=== PATIENT | male | born 1955 | race Caucasian/White ===

== ENCOUNTER 2017-03-28 11:36 | Inpatient (IN) | payer MEDICAID ==
[~2017-03-28] VITALS: Ht 175.3 cm; Wt 61.4 kg
--- NOTE | ~2017-03-28 | ER ---
PATIENT'S NAME: JIMMIE TORO [facility] AGE: 61 Y [address] ROOM: [place] [address] LOCATION: [facility] ADMIT DATE: 03/28/2017 ER/Outpatient Report DISCHARGE DATE: FAMILY PHYSICIAN: PHYSICIAN, NO ATTENDING PHYSICIAN: Miryam PAGAN Time of Arrival: 1136 hours. Time of Evaluation: 1136 hours. CHIEF COMPLAINT: Coughing up blood. HISTORY OF PRESENT ILLNESS: The patient is a 61-year-old male who presents to the emergency department today with a chief complaint of coughing up blood. He reports that he just moved from [place] about 3 days prior to arrival here in the emergency department. The patient reports he has oropharyngeal cancer. He has undergone chemotherapy with cisplatin, Taxotere, 5-fluorouracil, and Neulasta. He does report that he started coughing up blood last night. He has required suctioning. The patient does have a trach and he has also a PEG noted. Denies any nausea or vomiting. No shortness of breath. Does report a fever from 100 to 101. He does have some abdominal pain at the feeding tube. Denies any chest pain. PAST MEDICAL HISTORY: Type 2 diabetes, oropharyngeal cancer, abdominal trauma. PAST SURGICAL HISTORY: Tracheostomy x2, laparotomy for abdominal trauma, benign laryngeal lesion removed 6 years ago in [place]. SOCIAL HISTORY: The patient was living with friends in [place], [place], just moved back to be with his sister 3 days ago. He does have a heavy smoking history, at least half a pack a day for more than 40 years, quit approximately 5 months ago. ALLERGIES: NO KNOWN DRUG ALLERGIES. MEDICATIONS: Please see list. PRIMARY CARE DOCTOR: No local provider. He used to see Dr. Breanne Holcomb in [place] and has been seeing the [facility]. PATIENT'S NAME: JIMMIE TORO [facility] AGE: 61 Y [address] ROOM: [place] [address] LOCATION: [facility] ADMIT DATE: 03/28/2017 ER/Outpatient Report DISCHARGE DATE: FAMILY PHYSICIAN: PHYSICIAN, NO ATTENDING PHYSICIAN: Miryam PAGAN REVIEW OF SYSTEMS: All systems are reviewed by myself and are negative with the exception of those discussed in HPI and past medical history. PHYSICAL EXAMINATION: VITAL SIGNS: Weight 66.2 kg. Blood pressure 93/59, pulse 64, respiratory rate 18, temperature 98.4, oxygen saturation 94% on room air. GENERAL: The patient is a 61-year-old male, appears stated age, in no acute distress at this time. HEENT: Head: Normocephalic, atraumatic. Pupils are equal, round, and reactive to light and accommodation. Extraocular motions are intact. Nares are patent bilaterally. TMs are clear. Oropharynx is clear. NECK: Trach is in place. No drainage noted. No nuchal rigidity. CARDIOVASCULAR: Regular rate and rhythm. LUNGS: Diminished diffusely. ABDOMEN: Soft, [id number] tenderness to palpation. No rebound, rigidity, or guarding. Positive bowel sounds. MUSCULOSKELETAL: The patient moves all 4 extremities. SKIN: Warm and dry. There is no rashes or lesions noted. LABORATORY DATA AND X-RAYS: Lactate is 2.0. CBC is unremarkable except for hemoglobin 10.7, hematocrit 31.8. Coags are unremarkable. CMP unremarkable except for glucose 164. LFTs are normal. Magnesium is 1.7. Cardiac enzymes are unremarkable. ProBNP is normal. Procalcitonin is less than 0.05. One-view chest x-ray is obtained, is interpreted by myself, does show bilateral hazy opacities. A CT scan of the chest is obtained, PE study as well as abdomen and pelvis. I discussed results with the radiologist. There is no evidence of PE but there is bilateral consolidations with cavitations noted. They are most prominent in the left upper lobe favoring infection although metastatic disease is less likely. The CT scan of the abdomen and pelvis is unremarkable. Urinalysis is unremarkable. IMPRESSION: 1. Bilateral consolidations with cavitation with suspicion of infectious etiology. 2. Oropharyngeal cancer, undergoing chemotherapy. 3. Diarrhea. 4. Trach and pain. 5. Initial visit. EMERGENCY DEPARTMENT COURSE: The patient was brought back to the examination room. Seen and evaluated by PATIENT'S NAME: MUNAJIMMIE [facility] AGE: 61 Y [address] ROOM: [id number] [place], [place] [address] LOCATION: [facility] ADMIT DATE: 03/28/2017 ER/Outpatient Report DISCHARGE DATE: FAMILY PHYSICIAN: PHYSICIAN, NO ATTENDING PHYSICIAN: Miryam PAGAN myself. IV is established. Laboratory analysis and imaging are obtained as described above. The patient is given a liter of normal saline. He is given 0.5 mg of Dilaudid IV. Initiated on 4.5 g of Zosyn IV as well as 1250 mg of vancomycin IV. He is to repeat Dilaudid dose. I have discussed the results with the patient's sister at the bedside. I have reviewed the patient's old records. I have discussed the case with Dr. Pagan, who is on-call for the Hospitalist Service. He has seen and evaluated the patient down here in the emergency department. He has discussed the case with Dr. Cheng who is the residence manager, who has also seen and evaluated the patient down here in the emergency department. The patient will be admitted under the care of Hospitalist Service of Dr. Pagan in stable condition. DO PATRICE MAHER/grzegorz /[id number] d: 03/29/1714 t: 03/29/17 0855, OUTPATIENT REPORT
--- NOTE | ~2017-03-28 | CON ---
PATIENT'S NAME: STEPHEN HAMPTON [facility] AGE: 61 Y [address] ROOM: [address] [address] [place] [facility] [place] DATE: 03/28/2017 Consultation DISCHARGE DATE: FAMILY PHYSICIAN: PHYSICIAN, ISAAC ATTENDING PHYSICIAN: Miryam PAGAN DATE OF CONSULTATION: 03/29/2017 REFERRING PHYSICIAN: Aj Cheng MD Consult to Dr. Pagan. 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 The history of the present illness is from the patient who is rambling, discursive, slanted but generally informative historian; from Dr. Pagan; from review of the [facility] chart; and from review of records which have been assembled detailing the workup coordinated by our colleagues in [place], [place]. There may be some significant lacuna in the information available to us. Mr. Hampton is seen on day #24 of his first cycle of docetaxel, cisplatin, and infusional 5-FU administered as neoadjuvant therapy for a locally advanced supraglottic carcinoma of the larynx. On day #23, the patient was seen in the [facility] Emergency Room and subsequently hospitalized after that evaluation. The patient reported with hemoptysis. The patient reported fevers to 101 degrees. He reported he required oral suction. The patient saw Dr. Colton Bedoya in the emergency room. A urinalysis was unremarkable. The white blood cell count was 5600 with 59% neutrophils and 20% lymphocytes. The hemoglobin was 10.7 g/dL, the MCV 90, and the platelets 267,000. The INR was 1.1 and the PTT was 34. The CMS revealed that the glucose was 164 mg/dL and the albumin was 2.5 g/dL. The globulin was 4.6 g/dL and the calcium was 8.3 mg/dL. Otherwise, the CMS was unremarkable. The eGFR was greater than 60. The lactate was 2 mEq/L. Cardiac enzymes were unremarkable. The magnesium was 1.7 mg/dL. Procalcitonin was less than 0.05 ng/mL. Sputum cultures revealed many gram-negative rods, few gram-positive cocci, few yeast, many white blood cells, and few epithelial cells. There was heavy growth of Pseudomonas aeruginosa. There was moderate growth of Morganella morganii and Kaitlin albicans as well as other gram-negative rods. Stool for C. difficile toxin was negative. Fecal leukocytes were not present. Blood cultures are negative. PATIENT'S NAME: STEPHEN HAMPTON [facility] AGE: 61 Y [address] ROOM: [place] [address] [place]: [facility] [place] DATE: 03/28/2017 Consultation DISCHARGE DATE: FAMILY PHYSICIAN: PHYSICIAN, ISAAC ATTENDING PHYSICIAN: Miryam PAGAN In the emergency room, a chest film revealed "bilateral opacities," hazy consolidation in the left mid lung and a possible small infiltrate or nodule in the mid to lower right lung. A CAT scan with PE protocol revealed no pulmonary emboli. There were mild coronary calcifications. There was a 5.7 cm area of consolidation in the upper lobe of the left lung with internal bubbles of gas suggesting cavitation. There was a similar area on the lower lobe of the right lung measuring 2.7 cm and lower lobe of the left lung measuring 1.5 cm. Bilateral bronchial wall thickening with linear subsegmental atelectasis in the bilateral bases was observed. Mild mediastinal and hilar lymphadenopathy with a subcarinal node measuring 2 cm was present. The tracheostomy was present in the appropriate position. A CAT scan of the abdomen and pelvis revealed a gastrostomy tube in place without evidence of complication. Dr. Pagan hospitalized the patient and initiated therapy with vancomycin and piperacillin/tazobactam. Dr. Pagan arranged for collection of acid-fast bacilli sputum as well as QuantiFERON. Dr. Pagan obtained galactomannan and urine for histoplasma and serum Coccidioides. Dr. Gonzalez saw the patient in Infectious Disease consultation and recommended continuation of the empiric antibiotics. Dr. Gonzalez also recommended a bronchoscopy with biopsies to rule out metastatic cancer and to better ascertain whether the patient had an invasive infection. Infectious Disease followup is planned following the bronchoscopy. Mr. Hampton feels better in the hospital. Mr. 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 The patient was in his normal state of health until June 2016. He lived in [facility]. He was to a [place] citizen. 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 He worked 14-15 hour days, 7 days a week. He climbed 110 steps 4-5 times a day. The patient acknowledged he had chronic neck pain due to an injury for which he took ibuprofen. He had a cough productive of less than a teaspoon of clear sputum a day. He grumbled about chronic heartburn, relieved by baking soda. He had longstanding sensory numbness in his right 3rd, 4th, and 5th fingers. He had no practical limits. In June 2016, the patient developed a gradually progressive sore throat, right otalgia and hoarseness. In July 2016, he reported to an oil bay technician in [facility] who recommended that he "go home" after performing a laryngoscopy. Mr. Hampton followed the advice, but his efforts bore no fruit in the short term as he had no insurance. Eventually, a workup was organized, got rolling and treatment was recommended and implemented. On 01/07/2017, the patient saw Dr. Les Wallace in Radiation Oncology PATIENT'S NAME: STEPHEN HAMPTON [facility] AGE: 61 Y [address] ROOM: [place] [address] [place]: [facility] [place] DATE: 03/28/2017 Consultation DISCHARGE DATE: FAMILY PHYSICIAN: PHYSICIAN, NO ATTENDING PHYSICIAN: Miryam PAGAN consultation in the [place], [place] area. Dr. Wallace noted that the patient had been seen in the emergency room at [facility] on 12/27/2016 with the aforementioned physical complaints and tachypnea was observed. A CAT scan of the head, neck, and brain on 12/27/2016 revealed an infiltrating supraglottic-glottic tumor with airway narrowing and a suspicious right internal jugular chain node. On 12/28/2016, the patient saw Dr. Palumbo who performed a fiberoptic laryngoscopy revealing exophytic tumor on the laryngeal aspect of the epiglottis on the right side, extending down to the larynx. The right vocal cord was involved and was not visible. There was limited movement of the left arytenoid, but the vocal cords could not be well visualized due to tumor. The pyriform sinuses and vallecula appeared uninvolved. The mass was transglottic and was at least 3-4 cm in size. No biopsy was done at that time. On 12/30/2016, the patient underwent a right vocal cord biopsy and tracheostomy after declining a total laryngectomy. 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 On 01/05/2017, microlaryngoscopy with removal/debulking of the laryngeal papilloma and change of tracheostomy tube was performed. The biopsy revealed a grade 1, superficially invasive, squamous cell carcinoma that was HPV-16 positive. No evidence of lymphovascular invasion or EGFR expression was noted. On 01/07/2017, Mr. Hampton saw Dr. Rodriguez in Medical Oncology consultation and Dr. Judd in Radiation Oncology consultation. A PET/CT scan, dental evaluation, speech and swallowing evaluation, and nutrition consultation was recommended. Placement of a PEG tube was recommended. Chemoradiation over 7 weeks was initially recommended. On 02/08/2017, a PET/CT scan was performed. The radiologist reported the presence of a lobular hypermetabolic soft tissue mass localized to the supraglottic region at the central epiglottic base, extending both into the right and left aryepiglottic folds, right more prominent than left. The mass extended caudally to the level near the cricoarytenoid junction on the right with asymmetric deformity of the vocal cords. The false cords were normal in appearance as was the adjacent cricoid. There was increased activity in the soft tissues posterior to the cricoid, which was felt to be physiologic. No tracheal cartilage destruction was apparent. The subglottic airway was intact with a tracheostomy tube in place. The radiologist acknowledged accurate measurement of the complex lobular mass was difficult, but gave it the old college try and reported the tumor was 4.2 cm with a maximum SUV of 6.3. There was a 2.2 cm level II right upper cervical lymph node with a maximum SUV of 4.1 and a few other smaller PATIENT'S NAME: STEPHEN HAMPTON [facility] AGE: 61 Y [address] ROOM: [address], [place] [address] [place]: [facility] [place] DATE: 03/28/2017 Consultation DISCHARGE DATE: FAMILY PHYSICIAN: PHYSICIAN, NO ATTENDING PHYSICIAN: Miryam PAGAN subcentimeter lymph nodes at level II-III with nonspecific borderline metabolic activity. There were several small and borderline enlarged left groin hypermetabolic lymph nodes and a distinct focus of small nodular hypermetabolic activity in the central right lobe of the liver. Mr. Hampton makes the point initiation of his treatment was delayed by referral for a biopsy of the subtle areas of abnormality in the left groin and liver. The invasive radiologist consulted, recommended against biopsy. Therefore, the patient moved on to therapy and saw Dr. Alexandro Bonilla on 03/06/2017. The patient's situation was reviewed. Induction with 3 cycles of docetaxel, cisplatin, and a 5-fluorouracil infusion was recommended. Mr. Hampton does not recall why the plan changed. The progress note was opaque on this point. In any event, on 03/06/2017, docetaxel, cisplatin and a 5- FU infusion were initiated. We do not have the chemotherapy flow charts (nor do we have any pathology reports, or x-ray reports other than the most helpful one - the PET/CT scan on 02/08/2017). The patient's course was complicated with toxicity requiring hospitalization. Even prior to initiation of his therapy, the patient had been declining. He reported in the week prior to initiation of his chemotherapy, his temperature was 100, leonel to 104 degrees Fahrenheit. The patient reports he was treated as an outpatient with amoxicillin. The patient was told he had an "infection," but was not told the source of the infection. He believes the chest x-ray was negative. He reports his fever never completely resolved. He reports he lost 88 pounds, from 220 to 132 pounds prior to placement of his PEG tube, but has regained a considerable amount of weight. His appetite has not been that bad and at worst he has always been capable of self care. The patient could still take solids prior to his admission and initiation of chemotherapy and had right otalgia as well as intermittent hemoptysis, which he presumed was from his tracheostomy. The patient was producing more phlegm. His condition worsened shortly after chemotherapy. Approximately day #6, he developed diarrhea and fevers of 102-103 degrees Fahrenheit. He reports he received no answer from the answering service, so he self-medicated himself with ibuprofen and then his fever leonel to "108 degrees Fahrenheit" on day #7. He collapsed and was transported by ambulance to the [facility] in [place], [place], and was hospitalized in the ICU for 5 days, in the hospital overall for 10 days, and was discharged, he estimates, on day #16 of the cycle. The patient collected his records, booked a flight from [place] to [place], [place], and was picked up by his family and transported to [place] where he lives with his sister, [id number] and plans to stay here for the rest of his evaluation and treatment. After several days here, he reported to the PATIENT'S NAME: STEPHEN HAMPTON [facility] AGE: 61 Y [address] ROOM: [address] [address] [place]: [facility] [place] DATE: 03/28/2017 Consultation DISCHARGE DATE: FAMILY PHYSICIAN: , ISAAC ATTENDING PHYSICIAN: Miryam PAGAN emergency room with his hemoptysis. Mr. Hampton has smoked 1 pack per day of cigarettes for 35-40 years, but has abstained since June of 2016. Mr. Hampton drank a 1-irsr-t-week for 10 to 15 years, but for the last 5 years has probably had 12 beers a week. Mr. Hampton reports he underwent a biopsy of the vocal cords in 1996 for a benign lesion, which was removed. In 2011, the patient underwent a biopsy at [facility] in [place], [place], by an oil bay technician. Indeed, he maintains a tracheostomy was placed while the cancer was removed. In 2012, on surveillance laryngoscopy, no cancer was present when the biopsy was done. The patient did not see another oil bay technician until 2015. The patient reports that his cervical adenopathy has regressed and his right ear pain has improved. ACTIVE MEDICAL PROBLEMS, CHRONIC AND DIAGNOSED: 1. Type 2 diabetes mellitus noted in 2003, probably precipitated by glucocorticoids prescribed when he was hospitalized for severe injury. He has not been treated as an outpatient. 2. Objective decreased auditory acuity, work related, which he has not treated. 3. Tobacco use 1 pack per day for 35-40 years, abstained since June 2016. 4. Reactive airways disease. Inhalers have been prescribed, but the patient has not adhered to the regimen. 5. Essential arterial hypertension noted in 2010. This has not been labile or associated with any end-organ damage and resolved with his weight loss. 6. Mild osteoarthritis in his right knee and elbows. 7. Atherosclerotic heart disease with mild coronary calcifications noted on CAT scan performed at [facility]. ACUTE MEDICAL ILLNESSES (RESOLVED), PAST SURGERIES, INJURIES: 1. In 1958 - bilateral inguinal herniorrhaphy. 2. In 1960 - appendectomy. 3. In 1966 - left elbow fracture without long-term complications or disability. 4. In 1973 - removal of right knee cartilage. 5. In 2003 - occupational accident resulting in fracture, 3 cervical vertebra, "all the left ribs" and a ruptured spleen. The patient required an exploratory laparotomy to stanch the internal bleeding as well as a fusion of 3 cervical vertebra. PATIENT'S NAME: STEPHEN HAMPTON [facility] AGE: 61 Y [address] ROOM: [place] [address] [place]: [facility] [place] DATE: 03/28/2017 Consultation DISCHARGE DATE: FAMILY PHYSICIAN: PHYSICIAN, NO ATTENDING PHYSICIAN: Miryam PAGAN 6. In 2007 - right and left wrist fracture. MEDICATIONS UPON ADMISSION: 1. Alprazolam 0.5 mg p.o. t.i.d. p.r.n. anxiety. 2. Amoxicillin/clavulanate 500/125 one p.o. every 8 hours. 3. Bisacodyl 5 mg p.o. daily. 4. Dexamethasone 4 mg p.o. b.i.d. perioperative with chemotherapy. 5. Hydromorphone 4 mg p.o. every 3 hours p.r.n. pain. 6. Ondansetron 8 mg p.o. t.i.d. p.r.n. 7. Oxycodone extended release 20 mg p.o. every 12 hours. 8. Pantoprazole 40 mg p.o. q.24h. 9. Prochlorperazine 10 mg every 6 hours. ADVERSE REACTIONS TO MEDICATIONS, TRANSFUSIONS, ALLERGIES: The patient had transfusions in 2000 when he had an episode of GI bleeding from a rectal fissure, he needed 4 units. He also had blood transfusions with his ruptured spleen. TOBACCO: One pack per day for 35-40 years, abstained since June 2016. ALCOHOL: Two beers a day for 5 years, perhaps 6-pack a week for the 10 to 15 years prior to that. CAFFEINE: 1. One coke per day. 2. One tea per day. IMMUNIZATIONS: Negative flu, negative Pneumovax, positive tetanus, positive varicella zoster virus vaccination. FAMILY HISTORY: 1. Mother of small cell carcinoma of the lung at age 75. 2. Six maternal uncles all developed tobacco-related small cell carcinoma of the lung. SOCIAL HISTORY: The patient was born in [place], [place]. He graduated a [place], [place] [employer]. He served our country in the [employer] from as a [employer] side. 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 The patient has been on 3 occasions and on 2 occasions. He is from his , who is a citizen of [place], and he does not anticipate seeing his again. The patient is not a churchgoer. He has a family in [place], and his sister is a PATIENT'S NAME: MUNASTEPHEN [facility] AGE: 61 Y [address] ROOM: [address] [place] [id number] [place]: [facility] [place] DATE: 03/28/2017 Consultation DISCHARGE DATE: FAMILY PHYSICIAN: PHYSICIAN, NO ATTENDING PHYSICIAN: Miryam PAGAN registered nurse. He is not related to Kee Hampton. REVIEW OF SYMPTOMS: Negative other than those noted in the history of present illness. PHYSICAL EXAMINATION: VITAL SIGNS: Pulse 72 and regular, blood pressure 115/65, respiratory rate 18, temperature 98.4. Height 69 inches, weight 67.4 kg (148 pounds), BMI 21.9 kg/m2. GENERAL: A well-developed, loquacious, 61-year-old male, in no acute distress. HEENT: Edentulous. The patient has healing ulcers on the upper and lower lips. LYMPH NODES: The patient has a hard, 1 cm, level II right cervical lymph node. A tracheostomy tube is in place. There is a scar over the posterior cervical neck. CHEST: Bilateral rhonchi. CV: Regular rhythm. No murmurs, bruits, or adventitious sounds. ABDOMEN: A healed vertical scar from the xiphoid process to the umbilicus. A PEG tube is in place in the left upper quadrant of the abdomen. Bowel sounds are decreased. GENITALIA AND RECTAL: Not examined. EXTREMITIES: Compression devices are present in the legs. Pulses are 2+ in the arms and neck. Strength 5/5 throughout. NEUROLOGIC: The patient is alert, oriented, and generally appropriate. IMPRESSION: 1. Stage MANPREET (T4a, N1, M0); grade 1; HPV-16 positive; squamous cell carcinoma of the supraglottic larynx with some transglottic extension. The primary tumor was 4.2 cm and the right upper cervical node was 2.2 cm on staging PET/CT scan. 2. The patient was at risk due to his tobacco and alcohol use over the years and, apparently, to HPV-16 exposure. 3. Our primary goal, and his, is cure. Perhaps 60-65% of patients would be alive 3 years after initiation of therapy with this stage and grade. 4. It is unclear why the initial plan of concurrent chemoradiation with cisplatin was not implemented. Perhaps the tumor was felt to be too bulky or the possibility of concurrent high-dose cisplatin in combination with radiation was felt to place the patient at risk for excessive toxicity. 5. At this point, we have to decide whether to proceed with induction therapy. The patient is responding to induction therapy. If he completed induction therapy with TCF concurrent chemoradiation, perhaps with carboplatin as was implemented in the TAX 324 trial could be employed. PATIENT'S NAME: STEPHEN HAMPTON [facility] AGE: 61 Y [address] ROOM: [place] [address] [place]: [facility] [place] DATE: 03/28/2017 Consultation DISCHARGE DATE: FAMILY PHYSICIAN: PHYSICIAN, ISAAC ATTENDING PHYSICIAN: Miryam PAGAN 6. The cavitary lesions in the lung need to be characterized prior to re- implementation of his antineoplastic therapy. Indeed, depending on the pathogen, his therapy may become more difficult to implement successfully. It is quite unlikely metastatic cancer explains the picture. RECOMMEND: Diagnostic: 1. Proceed with diagnostic bronchoscopy as planned. 2. Consult Dr. Imtiaz Nelson for Radiation Oncology advice. 3. Consult one of the colleagues at the [facility] in [place], [place], who has extensive experience with management of head and neck cancers. TREATMENT: 1. No antineoplastic therapy at this point. 2. Continue current antibiotic regimen and modify based on the bronchoscopy findings. 3. If we complete the second and third cycle of induction therapy, we presumably would employ docetaxel 75 mg/m2 IV over 1 hour day #1; cisplatin 100 mg/m2 IV over 1-3 hours; then 5-FU 1000 mg/m2 IV as a continuous infusion over 24 hours days #1-5, followed by pegfilgrastim. Subsequently, the patient might undergo concurrent chemoradiation with carboplatin AUC 1.5 IV weekly, concurrent with thirty-five 200 cGy radiation fractions to a total of 7000 cGy. 4. Alternatively, we might implement concurrent chemoradiation, cisplatin 100 mg/m2 IV days #1, #22, and #43 with same radiation fractions. However, that may be difficult to implement as he has already received 100 mg/m2 of cisplatin (we presume). PATIENT EDUCATION: 1. Made the point the priority was evaluation and control of the cavitary lesions in the lung. 2. Made the point Dr. Nelson and possibly our otolaryngology colleagues in [place], [place], will be involved in future recommendations. 3. Made the point we will decide whether to recommend continuation of his induction therapy followed by chemoradiation. MD KAREN GUNDERSON/modl PATIENT'S NAME: STEPHEN HAMPTON [facility] AGE: 61 Y [address] ROOM: [address] [address] [place]: [facility] [place] DATE: 03/28/2017 Consultation DISCHARGE DATE: FAMILY PHYSICIAN: PHYSICIAN, NO ATTENDING PHYSICIAN: Miryam PAGAN /[id number] CC: Imtiaz Nelson MD, PhD [facility] Les Wallace MD [facility] d: 04/01/17 0413 t: 04/07/17 1725, CONSULTATION REPORT
--- NOTE | ~2017-03-28 | INT ---
PATIENT'S NAME: STEPHEN HAMPTON [facility] AGE: 61 Y [address] 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 Dear doctor: It was a pleasure to see in routine inpatient consultation, Mr. Stephen Hampton. As you recall, this is a 61-year-old white male with a known history of a locally advanced supraglottic laryngeal carcinoma. History was obtained from the patient and from his previous medical records. When seen today, Mr. Hampton is sitting up in bed. He is alert and oriented. He appears to be doing and feeling well. He indicates he is aware of his diagnosis, understands what his treatments are at present, and has been told by his previous physicians in [place], [place] that options for him included chemo-RT versus neoadjuvant chemotherapy followed by potential chemotherapy and radiotherapy. The patient was seen in the emergency room by Dr. Colton Bedoya after presenting with significant fevers. The patient had been treated in [place], [place]; required multiple admissions in [place], and subsequently decided that he would wish to be closer to home, flew from [place] to [place], was picked up by family members, and has come to [place], [place] where he has family. He states that he had been feeling ill and that he started having problems in March of 2016. At that time, he has complaints of pain upon swallowing and ear pain. The patient subsequently underwent workup which included an endoscopy as well as a PET scan. This revealed the patient to have what was felt to be a lobular mass in the area of the supraglottic larynx, at the area of the central epiglottic base extending into the both right and left area epiglottic folds, right more prominent than left. The mass extended caudally into the level of the cricoarytenoid junction on the right with asymmetric deformity of the vocal cords. False cords were felt to be normal. Increased activity in the soft tissue posterior to the cricoid which was felt to be physiologic. The patient's tumor was characterized as a complex morphology lobular, hypermetabolic soft-tissue mass. This area was difficult to measure but was felt to be 4.2 cm in size with a maximum SUV of 6.3. Also noted was a 2.2 cm PATIENT'S NAME: STEPHEN HAMPTON [facility] AGE: 61 Y [address] ROOM: [address] [place] [address] LOCATION: [facility] [place] ADMIT DATE: 03/28/2017 Oncology Report DISCHARGE DATE: FAMILY PHYSICIAN: PHYSICIAN, NO ATTENDING PHYSICIAN: Miryam WILCOX level 2 node, right upper cervical lymph node chain with an SUV of 4.1. A few smaller submetabolic lymph nodes were noted at levels 2 to 3 with nonspecific borderline metabolic activity. Also noted were some enlarged left groin hypermetabolic lymph nodes in the distinct focus of small nodular hypermetabolic activities in the area of the liver. The patient was sent for biopsy of these regions, but upon evaluation by the physician who is going to do the biopsy, the decision was made to not do the biopsies to those regions. Pathology on this patient has come back as a squamous cell carcinoma, grade 1, HPV positive. No evidence of lymphovascular invasion or EGFR expression was noted. The patient was started on chemotherapy. He received docetaxel, cisplatin, and infusional 5-FU. He is in the middle of getting his neoadjuvant chemotherapy at this time. When seen today, he indicates he was having trouble and required multiple hospitalizations in [place]. He indicates he has lost approximately 80 pounds. He had originally been working in [place], was seen by ENT there, and was told to go home after he had finished his job. Subsequently, he went back home to [place] and now has come to [place], [place]. When seen today, he appears to be alert and oriented. He is reasonably content looking. He does have a PEG tube in place. He indicates he has a PEG tube in place, a trach in place, and a port in place. ALLERGIES: THE PATIENT HAS NO KNOWN DRUG ALLERGIES: THE PATIENT INDICATES HE HAS HAD TRANSFUSIONS IN 2000, WHEN HE HAD AN EPISODE OF GI BLEEDING FROM A RECTAL FISSURE, NEEDED 4 UNITS. ALSO HAD BLOOD TRANSFUSIONS WITH A HISTORY OF A RUPTURED SPLEEN. MEDICATIONS: The patient's current medications include: 1. Benadryl. 2. Viscous lidocaine. 3. Mylanta. 4. Neosporin. 5. OxyContin. 6. Zofran. 7. Dulcolax. 8. Dilaudid. 9. Protinox. 10. MS Contin. 11. Xylocaine. 12. Xanax. PATIENT'S NAME: STEPHEN HAMPTON [facility] AGE: 61 Y [address] ROOM: [address] [address] LOCATION: [facility] [place] ADMIT DATE: 03/28/2017 Oncology Report DISCHARGE DATE: FAMILY PHYSICIAN: PHYSICIAN, NO ATTENDING PHYSICIAN: Miryam WILCOX 13. Zofran. 14. Sublimaze. PAST MEDICAL HISTORY: Surgical is positive for: 1. Bilateral inguinal herniorrhaphy in 1958. 2. Appendectomy in 1960. 3. Left elbow fracture in 1966. 4. Removal of right knee cartilage in 1973. 5. In 2003, he had an occupational accident, where he said he fell 35 feet, had three surgical vertebrae fractured as well as multiple left ribs and a ruptured spleen. He required an exploratory laparotomy to stop the internal bleeding as well as the fusion of the three cervical ribs. Medical is positive for: 1. Type 2 diabetes, noted in 2003, when he was on glucocorticoids. 2. Decreased hearing. 3. Tobacco use, a pack per day for 35 to 40 years. Abstain since June of 2016. 4. Reactive airway disease. Inhalers have been prescribed. 5. Essential hypertension. 6. Mild osteoarthritis. 7. Atherosclerotic disease seen on CAT scan. FAMILY HISTORY: The patient's mother of small-cell carcinoma of the lung at age 75. The patient indicates he had 6 maternal uncles who developed tobacco related small- cell carcinoma of the lung. SOCIAL HISTORY: The patient was born in [place], [place]. 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 He has been on three occasions and on two occasions. He is from his who is a [place] citizen and is now back with family in [place], [place] where he has a sister who is a registered nurse and he has some children. The patient indicates he has not had a previous history of radiotherapy. REVIEW OF SYSTEMS: Negative except for the History of Present Illness. The patient at present indicates his complaints of pain in the neck and in the ear, have gotten better since starting the chemotherapy. When asked directly, he indicated he thought that the mass in his right neck had decreased in size. PHYSICAL EXAMINATION: VITAL SIGNS: Temperature of 99.6, pulse of 66, blood pressure of 97/55, and PATIENT'S NAME: STEPHEN HAMPTON [facility] AGE: 61 Y [address] ROOM: [id number] [place], [place] [address] LOCATION: [facility] [place] ADMIT DATE: 03/28/2017 Oncology Report DISCHARGE DATE: FAMILY PHYSICIAN: PHYSICIAN, NO ATTENDING PHYSICIAN: Miryam WILCOX weight of 67.4 kg. HEAD AND NECK: Normocephalic and atraumatic. Extraocular motions are intact. Oral cavity with no masses or mycotic lesions. The patient is edentulous. NECK: The patient's neck on the left with no masses noted at level 1, 2, 3, 4, and 5 lymph nodes. On the right, the patient has approximately a 2.5-cm lesion noted in the right neck at level 2 region. This is moderately tender upon palpation. He indicates it has gotten smaller. Levels 3, 4, and 5 with no lymphadenopathy noted. The patient has a significant lipoma noted at the base of the neck posteriorly on his right. The patient with a trach in place anteriorly. This appears to be working normally. CHEST: The patient does have a MediPort in place. This appears to be working normally. ABDOMEN: Soft and nontender. The patient with a PEG tube in place which appears to be within normal limits. EXTREMITIES: Without clubbing, cyanosis, or edema. NEUROLOGIC: The patient is alert and oriented x3. Cranial nerves are grossly normal. Muscle strengths are grossly normal. It is to be noted that the patient's speech appears to be near normal. LABORATORY DATA: The patient has undergone multiple laboratories including a PET scan which is being obtained. This revealed disease in the area of the supraglottic larynx with transglottic extension. This measured 4.2 cm in largest dimension. The lymph node on the right at the level 2 was noted measuring approximately 2.2 cm. Further, on chest x-ray, the patient has had cavitary lesions noted on the right and the left. Bronchoscopy has been done. Pathology is pending. It is felt at this time that these are probably of infectious etiology, we are awaiting final pathology and cultures. ICD 10. IMPRESSION: A 61-year-old, white male, with a newly diagnosed stage MANPREET (T4a, N1, M0) squamous cell carcinoma of the supraglottic larynx, grade 1 and HPV positive. PLAN: The patient is currently getting neoadjuvant chemotherapy. We will discuss this with Dr. Morrow given that the patient is already under treatment, we would consider continuing with this. Once his neoadjuvant chemotherapy has been done, we would consider him for combined chemotherapy and radiotherapy. We would anticipate treating the patient for a 7-week period of time to the affected area using an IMRT technique to give a total dose of 7000 cGy to this region as per NCCN guidelines. We discussed the potential risks, benefits, with the patient. We went over potential side effects. The patient asked questions, these were answered to his satisfaction. The patient will be PATIENT'S NAME: STEPHEN HAMPTON [facility] AGE: 61 Y [address] ROOM: [place] [address] LOCATION: [facility] [place] ADMIT DATE: 03/28/2017 Oncology Report DISCHARGE DATE: FAMILY PHYSICIAN: PHYSICIAN, ISAAC ATTENDING PHYSICIAN: Miryam WILCOX brought back to our facility as he is nearing the end of his neoadjuvant chemotherapy for CT Sim. A mask will be done and he will be planned for IMRT radiotherapy. Thank you for allowing us to consult on this most pleasant patient. Sincerely, ANTWAN GOEL MD, PHD ARIELLAL/grzegorz /[id number] CC: MD Aj Lee MD Ayalew Dagmawe, MD Nikhil Thaker, MD Alexandro Bonilla MD,PhD FAx:[phone] d: 04/05/17 4401 t: 04/21/17 1000, INTERVAL NOTE
--- NOTE | ~2017-03-28 | OR ---
PATIENT'S NAME: JIMMIE TORO [facility] AGE: 61 Y [address] ROOM: [address] [address] LOCATION: [facility] [place] ADMIT DATE: 03/28/2017 OR/Procedure Report DISCHARGE DATE: FAMILY PHYSICIAN: PHYSICIAN, NO ATTENDING PHYSICIAN: Miryam WILCOX SURGEON: Aj Cheng MD INVESTMENT BANKER: DATE OF PROCEDURE: 04/03/2017 INDICATIONS FOR PROCEDURE: Bilateral cavitary lesions, rule out bronch infectious vs malignancy. PROCEDURE: 1. Fiberoptic bronchoscopy. 2. Transbronchial biopsy. 3. Transbronchial brushing. 4. Transbronchial needle aspiration. 5. Bronchoalveolar lavage. 6. Fluoroscopic guidance. PROCEDURE IN DETAIL: After the informed consent and proper time-out was called by me and the nursing staff and anesthesia, the patient was in operating room 5. After appropriate level of anesthesia was achieved, Dr. Espinal up sized his trach from size 6 to size 8. After that was done, the bronchoscope was introduced through the trach into the tracheobronchial tree. The patient tolerated the procedure well. There were no immediate complications. FINDINGS ON PROCEDURES: The trach is patent, the visualized portion of the trachea appears to be normal in caliber. There was no endobronchial lesions or secretions. The david is slightly splayed. The right mainstem is patent with no endobronchial lesions or secretions. The right upper lobe takes off about to 1.5 cm from the david, it is anatomically correct with no endobronchial lesions or secretions, the right middle and right lower lobe are patent with no endobronchial lesions or secretions and anatomically correct. The left mainstem is patent. There is no endobronchial lesions or secretions, the left upper lobe's apical segment is patent with no endobronchial lesions or secretions, the lingula appears to be slightly narrowed, and there is a trial of blood. The left lower lobe appeared patent with no endobronchial lesions or secretions. After the initial inspection was done, the bronchoscope was at the david, a transbronchial needle aspiration was done of the subcarinal node in the right- side of the david. After that the bronchoscope was put in at the entrance of the lingula, transbronchial brushing was done x2, then transbronchial biopsy PATIENT'S NAME: JIMMIE TORO [facility] AGE: 61 Y [address] ROOM: [address] [address] LOCATION: [facility] [place] ADMIT DATE: 03/28/2017 OR/Procedure Report DISCHARGE DATE: FAMILY PHYSICIAN: PHYSICIAN, NO ATTENDING PHYSICIAN: Miryam WILCOX under fluoroscopic guidance was done x6 in the left upper lobe, the lingular portion, the anterior and posterior portions. Then, after the biopsies were done, bronchoalveolar lavage was done using 40 mL, 25 mL were obtained. There were no immediate complications. The patient tolerated the procedure well. Estimated blood loss from procedure is less than 5 mL. The patient is transferred to PACU in stable condition. Thank you for allowing me to participate in the care of this patient. MD STEVE ESPITIA/grzegorz /[id number] d: 04/03/17 2349 t: 04/10/17 1044, OPERATIVE SUMMARY
--- NOTE | ~2017-03-28 | OR ---
PATIENT'S NAME: JIMMIE TORO [facility] AGE: 61 Y [address] ROOM: [place] [address] LOCATION: [facility] [place] ADMIT DATE: 03/28/2017 OR/Procedure Report DISCHARGE DATE: FAMILY PHYSICIAN: PHYSICIAN, NO ATTENDING PHYSICIAN: Miryam WILCOX SURGEON: Brad Espinal MD RATER ASSOCIATE: None. DATE OF PROCEDURE: 04/03/2017 PREOPERATIVE DIAGNOSES: 1. Lung mass. 2. Laryngeal malignancy. 3. Trach dependence. POSTOPERATIVE DIAGNOSES: 1. Lung mass. 2. Laryngeal malignancy. 3. Trach dependence. PROCEDURE: 1. Tracheostomy tube change. 2. Cauterization of the tracheal stoma. ANESTHESIA: General via tracheostomy tube. COMPLICATIONS: None. SPECIMENS: None. ESTIMATED BLOOD LOSS: 3 mL. FINDINGS: Significant tracheal granulation bypass deeply with a 8.0 DCT trach. INDICATIONS: The patient is a little known to myself as I just met him in the preoperative area at the request of anesthesia in anticipation of a bronchoscopic case being performed by Dr. Cheng. There was some concern about how to access the trachea and bronchi for evaluation and biopsy; and therefore, I evaluated the patient briefly in the preoperative area and then assisted with the procedure as described below in order to gain access to the patient's airway space. He does have a history of a T3 N1 laryngeal malignancy and was in the midst of treatment before moving into [place] to be closer to family. He did have a 6.[address] prior to the procedure. PATIENT'S NAME: JIMMIE TORO [facility] AGE: 61 Y [address] ROOM: [place] [address] LOCATION: [facility] [place] ADMIT DATE: 03/28/2017 OR/Procedure Report DISCHARGE DATE: FAMILY PHYSICIAN: PHYSICIAN, NO ATTENDING PHYSICIAN: Miryam WILCOX DESCRIPTION OF PROCEDURE: The patient was brought from the preoperative suite into the operating room and placed on a table in supine position. All pressure points were padded. A time-out was performed correctly identifying the patient and the procedure. The patient was entered in via anesthesia with propofol and the tracheostomy tube was removed and thereafter replaced with a 6.0 endotracheal tube. He was further deepened in anesthesia with this and after allowing for full anesthesia to take place, the endotracheal tube was removed and the tracheal stoma was evaluated, there was a large circumferential band of granulation tissue, the 8.0 DCT tracheostomy tube was then inserted into the tracheal stoma. This passed fairly easily. However, a small amount of bleeding was encountered from the granulation tissue. This was cauterized with silver nitrate and thereafter Surgicel packing was placed around the stoma. The trach was tied down to the Velcro and the cuff inflated. The patient was then returned to the care of Dr. Cheng for the remainder of the procedure, which was carried out in a separate dictation. I did monitor the case and returned 15 minutes, no further bleeding was encountered, and therefore the plan was to allow the patient to remain with this trach in place and possible downsizing later during his inpatient stay. MD ROXY MEADOWS/grzegorz /[id number] d: 04/04/17 0009 t: 04/06/17 0902, OPERATIVE SUMMARY
--- NOTE | ~2017-03-28 | HP ---
PATIENT'S NAME: J[facility]MIE [facility] AGE: 61 Y [address] ROOM: [place] [address] LOCATION: [facility] ADMIT DATE: 03/28/2017 History & Physical DISCHARGE DATE: FAMILY PHYSICIAN: PHYSICIAN, NO ATTENDING PHYSICIAN: Miryam WILCOX DATE OF SERVICE: CHIEF COMPLAINT: Hemoptysis. HISTORY OF PRESENT ILLNESS: The patient is a 61-year-old gentleman with past medical history of oropharyngeal cancer, status post surgery and one cycle of chemo, who presents here with hemoptysis. The patient reports that for the past week or so, he has been having productive cough with hemoptysis associated with fever and chills. The patient reports that he has been experiencing fever at home with T-max of 101 yesterday evening. The patient recently came from [place] where he used to live. The patient was diagnosed with oropharyngeal cancer in 2011 and had biopsy and surgery done, however, it recurred in 2016, which required multiple surgery. A repeat PET scan was done on 02/13, which showed hypermetabolic soft tissue mass after his surgery in 2016. The patient was treated on March 06 with docetaxel, cisplatin, and fluorouracil. However, soon after treatment, the patient experienced diarrhea and oral pain. Since the patient did not have family support in [place], the patient came to [place], [place] to live with his sister. The patient currently does not have primary care physician or oncologist and wants to be seen by one. 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 He is a former smoker, and his last smoke was in June 2016. The patient currently has a trach and a PEG tube for supportive diet. He reports that he has lost close to 70 pounds in the past year. MEDICAL HISTORY: Oropharyngeal cancer. SURGICAL HISTORY: Multiple biopsies and surgeries in his vocal cord, and trach placement and PEG placement in 2016. FAMILY HISTORY: Mother from lung cancer. Father from abdominal aneurysm. SOCIAL HISTORY: PATIENT'S NAME: JIMMIE [facility] AGE: 61 Y [address] ROOM: [address] [address] LOCATION: [facility] ADMIT DATE: 03/28/2017 History & Physical DISCHARGE DATE: FAMILY PHYSICIAN: PHYSICIAN, NO ATTENDING PHYSICIAN: JERIMiryam Smoked cigarettes until June 2016. Denies use of alcohol. The patient is currently retired. 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 MEDICATIONS: Please see MAR. REVIEW OF SYSTEMS: All systems have been reviewed and are negative except for what mentioned in the HPI. PHYSICAL EXAMINATION: VITAL SIGNS: Temperature 98.4, blood pressure 95/59, heart rate 64, respiratory rate 18, saturating 94%. HEAD: Normocephalic, atraumatic. GENERAL APPEARANCE: The patient is alert and awake, in no acute distress. EYES: Extraocular muscles intact. Sclerae nonicteric. NOSE: No nasal discharge. EARS: No ear discharge. ORAL CAVITY: Multiple ulcer lesions around his lips. CHEST: Bibasilar mild rhonchi. No rales or wheezes heard. HEART: Regular rate and rhythm. No murmurs, rubs, or gallops. ABDOMEN: Soft, nontender, and nondistended. PEG tube present. NECK: The patient has trach tube. SKIN: Warm to touch. MUSCULOSKELETAL: Range of motion intact. FOUNTAIN SERVER: Alert and oriented x3. Motor and sensory grossly intact. LABORATORY DATA: Lactate of 2. White blood cell count of 5.6, hemoglobin 10.7, and platelets of 267. Blood glucose 164, BUN of 9, creatinine of 0.8, sodium of 139, and CO2 of 27. PT of 11.4 and INR of 1. IMAGING DATA: CT chest shows bilateral consolidation with cavitation, most prominent on the left upper lobe. CT abdomen done because of diarrhea. No acute finding in the abdomen or pelvis. G-tube in place without evidence of complication. ASSESSMENT AND PLAN: 1. Cavitary pneumonia. The patient is a 61-year-old gentleman with recent history of oropharyngeal cancer, status post surgery, and one cycle of chemo with docetaxel, cisplatin, and fluorouracil, who presents here from [place] with hemoptysis and cavitary lesion on CT. Etiology most likely secondary to pneumonia, however, etiology was unknown yet. We will start PATIENT'S NAME: J[facility]MIE [facility] AGE: 61 Y [address] ROOM: [place] [address] LOCATION: [facility] ADMIT DATE: 03/28/2017 History & Physical DISCHARGE DATE: FAMILY PHYSICIAN: PHYSICIAN, NO ATTENDING PHYSICIAN: Miryam WILCOX the patient empirically on vancomycin and Zosyn and acquire 2 sets of blood culture and sputum culture. Since the patient is immunocompromised and also has history of travel abroad in the past, we will also workup the patient for tuberculosis. We will place the patient on airborne isolation. We will acquire acid-fast bacilli sputum culture x3. Also acquire QuantiFERON-TB gold. Fungal etiology also entertained. We will acquire galactomannan, b-D-glucan will be acquired, also urine histoplasma, and serum coccidioides IgM and IgG will be acquired. Discussed case with ID, Dr. Gonzalez who will be seeing him tomorrow. I also discussed the case with Dr. Cheng for possible bronchoscopy. 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 This was seen on the document that was sent with him. We will consult Dr. Morrow, our oncologist, and hopefully, we will acquire some tissue when bronchoscopy is done to further investigate histological process of these lesions. 2. Oropharyngeal cancer, status post multiple surgery and one episode of chemo with docetaxel, cisplatin, and fluorouracil. Biopsy that was actually read on December 2016 shows TNM staging of supraglottis T4a, N1 staging type. Histology shows small-cell carcinoma, histology grade 1 lymphovascular invasion unknown, EGFR expression unknown, human papillomavirus status HPV 16. The patient has received one episode of chemo and supposed to have 3 cycles and be treated with radiation and maintenance chemo. However, the patient came here after one cycle of chemo and reports that he did not tolerate the chemo with diarrhea, weight loss, and mucositis. We will consult Oncology to be seen here and hopefully to be seen as outpatient for possible further treatment. 3. Mucositis. Etiology most likely secondary to chemotherapy. The patient when tolerates p.o. intake, we will start the patient on Magic Mouthwash and also have pain medication on board. 4. Diarrhea, etiology most likely secondary to chemo. The patient was started on IV fluids. We will acquire stool for ova and parasites and stool for C. diff. We will treat the patient supportively. 5. Severe protein-calorie malnutrition. The patient has lost 70 pounds within a year or so. We will start the patient on general diet. We will also consult dietitian for possible supportive G-tube feedings. 6. Pain management. The patient has pain secondary to cancer. We will start the patient on his home medication of pain management. We will follow the patient clinically. 7. Dehydration. Continue IV fluid. I have personally reviewed the patient's medical record including but not limited to, blood work and radiology report and report from [facility]. Total time spent with the patient is greater than 70 minutes, more than 50% of the time is spent in direct patient care and patient consultation. Case was reviewed with the patient, Dr. Morrow, Dr. Cheng, and Dr. Gonzalez with Infectious Disease. Questions were answered to the patient's satisfaction. PATIENT'S NAME: J[facility]MIE [facility] AGE: 61 Y [address] ROOM: [place] [address] LOCATION: [facility] ADMIT DATE: 03/28/2017 History & Physical DISCHARGE DATE: FAMILY PHYSICIAN: PHYSICIAN, NO ATTENDING PHYSICIAN: Miryam WILCOX The patient will be admitted, will be on airborne isolation, will be on empiric antibiotic treatment with vancomycin and Zosyn, and we will workup for possible TB, fungal infection, and/or cancer. MD JUAN CARLOS WILLETT/grzegorz /[id number] D: [id number] T: [id number] HISTORY & PHYSICAL
--- NOTE | ~2017-03-28 | DS ---
PATIENT'S NAME: JIMMIE TORO [facility] AGE: 61 Y [address] ROOM: [address], [place] [address] LOCATION: [facility] ADMIT DATE: 03/28/2017 Discharge Summary DISCHARGE DATE: 04/06/2017 FAMILY PHYSICIAN: PHYSICIAN, ISAAC ATTENDING PHYSICIAN: Miryam WILCOX PRINCIPAL DIAGNOSES: 1. Bilateral pneumonia, secondary to multiple gram-negative bacteria including Pseudomonas and Morganella. 2. Locally-advanced carcinoma of the supraglottic larynx. 3. Protein-calorie malnutrition, status post PEG feeding. 4. Tracheostomy in place. PROCEDURES DONE IN THE HOSPITALIZATION: Tracheostomy exchange and bronchoscopy. CONSULTATIONS DONE IN THE HOSPITAL: Pulmonary, ENT, and Hematology/Oncology. HOSPITAL COURSE: I would like to dictate some of the previous history of his cancer which is gathered from the patient as well as consultation note from Dr. Morrow. The patient initially was in [place] where he developed persistent sore throat and underwent laryngoscopy by the ENT over there and was recommended to go to [facility]. All this was delayed by the process of obtaining insurance. This happened back in June 2016. His workup was organized finally in [place], [place]. Dr. Wallace noted that the patient had been seen in the ER at [facility] in 11/2016 with aforementioned physical complaints, tachypnea was observed, a CAT scan of the head, neck, and brain was done, which revealed infiltrating supraglottic and glottic tumor with airway narrowing and suspicions right internal jugular chain node. In December of 2016, the patient saw Dr. Palumbo who performed a fiberoptic laryngoscopy revealing exophytic tumor of the laryngeal aspect of the epiglottis on the right-side extending down to the larynx. The right vocal cord was involved and was not visible. There was limited movement of the left arytenoid, but vocal cords could not be well-visualized due to tumor. The patient underwent right vocal cord biopsy and tracheostomy after declining a total laryngectomy on December 30, 2016. 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 On January 05, microlaryngoscopy with removal and debulking of the laryngeal papilloma and change of the tracheostomy tube was performed. 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 No evidence of lymphovascular invasion or eGFR expression was noted. On January 07, the patient saw Dr. Rodriguez in Medical Oncology consultation and Dr. Judd in Radiation Oncology consultation. PET scan, CT scan, dental evaluation, speech and swallowing evaluation was done and Nutrition consultation was recommended. In December 2016, PET and CT was performed by the radiologist for PATIENT'S NAME: JIMMIE TORO [facility] AGE: 61 Y [address] ROOM: [address] [address] LOCATION: [facility] ADMIT DATE: 03/28/2017 Discharge Summary DISCHARGE DATE: 04/06/2017 FAMILY PHYSICIAN: PHYSICIAN, ISAAC ATTENDING PHYSICIAN: Miryam WILCOX the presence of complex morphology lobular hypermetabolic soft tissue mass localized to supraglottic region at the center of the epiglottic space extending both into the right and left aryepiglottic folds, right more prominent than the left. The mass extended caudally to the level near the cricoarytenoid. The patient received chemotherapy with docetaxel as well as cisplatin and 5-fluorouracil and then the patient presented on chemotherapy day 4 to our hospital in [facility]. In our hospital, the patient was admitted with severe sepsis, secondary to multicavitary bilateral pneumonia, which was evaluated on the CAT scan. Sputum culture did grow multiple gram-negative rods, which revealed Pseudomonas aeruginosa, Morganella, Klebsiella, and Kaitlin albicans. The patient was started initially on broad-spectrum antibiotics. A bronchoscopy was done to look for any metastasis, which returned negative. The patient was continued on meropenem as all the organisms were sensitive to this medication. He was also noted to have a groin fungal infection for which he received fluconazole. Infectious Disease consultation was made and they recommended Levaquin for 3 weeks. At this point, there is no insurance that the patient have at this point. He has Medicare [place], but not [place]. There was a debate that if he is planning to go back to [place]. It is a very frustrating and difficult situation. He needs regular followup with Medical Oncology as well as chemoradiation. Our oncologist Dr. Morrow recommended a referral to [facility] who have more experience treating oropharyngeal carcinomas. DISCHARGE MEDICATIONS: Include: 1. Diphenhydramine. 2. Meropenem was discontinued. 3. Fluconazole was administered and was stopped in the hospital. 4. Neosporin for 1 week topical. 5. Pantoprazole 40 mg p.o. everyday. 6. Alprazolam 0.5 mg p.o. everyday. 7. Dilaudid 4 mg p.o. every 3 hours p.r.n. 8. Ondansetron 8 mg p.o. 3 times daily. 9. Dexamethasone 4 mg p.o. twice daily. 10. Compazine 10 mg p.o. every 6 hours. 11. Dulcolax 5 mg p.o. everyday,. 12. Levaquin for 3 weeks. ACTIVITY: As tolerated. DIET: Regular diet. Nutritional supplementation with a PEG tube. FOLLOW UP: Follow up with Dr. Morrow in 3 weeks, follow up with Infectious PATIENT'S NAME: JIMMIE TORO [facility] AGE: 61 Y [address] ROOM: [place] [address] LOCATION: [facility] ADMIT DATE: 03/28/2017 Discharge Summary DISCHARGE DATE: 04/06/2017 FAMILY PHYSICIAN: PHYSICIAN, NO ATTENDING PHYSICIAN: Miryam WILCOX Disease in 1 week, and follow up with ENT in 1 week. I spent 45 minutes in discharge planning of this patient as well as coordinating care. MD BEBETO CREWS/modl /[id number] d: 04/07/17 0550 t: 04/09/17 1323, DISCHARGE SUMMARY
--- NOTE | ~2017-03-28 | CON ---
PATIENT'S NAME: JIMMIE TORO [facility] AGE: 61 Y [address] ROOM: [place] [address] LOCATION: [facility] ADMIT DATE: 03/28/2017 Consultation DISCHARGE DATE: FAMILY PHYSICIAN: ISAAC MORGAN ATTENDING PHYSICIAN: Miryam PAGAN DATE OF CONSULTATION: 03/29/2017 REFERRING PHYSICIAN: Aj Cheng MD REFERRING PHYSICIAN: Dr. Pagan. REASON FOR CONSULTATION: Hemoptysis and bilateral cavitary lung lesions. HISTORY OF PRESENT ILLNESS: This is a 61-year-old gentleman with history of oropharyngeal cancer, status post surgery and one cycle of chemo, who presented with hemoptysis. The patient had a diagnosis with oropharyngeal cancer in 2011 and had surgery done; however, it recurred in 2015, which required multiple surgeries and treated with chemotherapy around March 06, 2017. Soon after that, the patient had some diarrhea and oral pain. Per the patient, he had on and off cough and productive cough with hemoptysis with some subjective fever. Since the patient had all the surgery and treatment done in [place] but because the patient does not have enough family support in [place], came to the [place], [place]. The patient is an ex-smoker and the patient had multiple travel to [place] including [place] and [place]. The patient also has some significant weight loss about 70 pounds over last year. In the emergency room, the patient had a CT scan done, which showed bilateral multiple cavitary lung lesion. Airborne isolation started. IV vancomycin and Zosyn started after blood culture and sputum AFB smear and culture ordered x3. The first one came back negative; and also noted that Fungitell and urine histoplasma antigen and serum aspergillus galactomannan and coccidioidomycosis serology were ordered. ID consultation was requested for further management and treatment. The patient complained of some cough and cough of mucus, hemoptysis better now, and also has some chills and intermittent fever. He had a tracheostomy and PEG tube in place. PAST MEDICAL HISTORY: Oropharyngeal cancer, multiple surgery, and chemotherapy. FAMILY HISTORY: Mother had a lung cancer. SOCIAL HISTORY: PATIENT'S NAME: JIMMIE TORO [facility] AGE: 61 Y [address] ROOM: [address] [address] LOCATION: [facility] ADMIT DATE: 03/28/2017 Consultation DISCHARGE DATE: FAMILY PHYSICIAN: PHYSICIAN, NO ATTENDING PHYSICIAN: Miryam PAGAN Ex-smoker. CURRENT MEDICATIONS: Antibiotic stevenson, has been on IV vancomycin and Zosyn since yesterday. REVIEW OF SYSTEMS: Per HPI. PHYSICAL EXAMINATION: VITAL SIGNS: Blood pressure 126/78, pulse rate 74, respirations 18, and temperature 98.3. GENERAL: In mild distress. HEENT: Tracheostomy in place. Sclerae nonicteric. LUNGS: Both lungs had some rhonchi and mild wheezing. HEART: Regular rhythm and rate. ABDOMEN: PEG tube in place. Soft. EXTREMITIES: No joint swelling. SKIN: No rash. NEURO: No confusion. LABORATORY DATA: White blood cell 5.1, hemoglobin 9.2, and platelet 240. BUN 6 and creatinine 0.7. AST and ALT normal. Procalcitonin done on 28 of March, was less than 0.05. UA negative. Blood culture on 28 of March, no growth. Stool for C. diff was negative. Stool Giardia antigen negative. Cryptosporidium antigen negative. On 29 of March, sputum AFB smear was negative. On 28 of March, CT of the abdomen and pelvis showed no acute illness. On 28 of March, CT of the chest showed bilateral consolidation with cavitation most prominent in the left upper lobe favor these to be infectious, metastatic disease less likely. Recommend follow up to resolution. Noted to have pending labs including TB interferon, urine histoplasma antigen, Fungitell, coccidioidomycosis serology, and serum Aspergillus galactomannan is pending. ASSESSMENT AND PLAN: This patient is a 61-year-old gentleman with history of oropharyngeal cancer, recent chemo; and presented with hemoptysis, found to have bilateral cavitary lung lesions. Travel history positive for [place] and [place], so possible etiology include bacterial pneumonia versus fungal pneumonia versus AFB pneumonia or could be metastatic cancer too. RECOMMENDATIONS: We will continue IV Zosyn and vancomycin for now. Follow AFB sputum smear of 2 more sets, the first set came back negative, so once negative x3, then we can stop airborne isolation. Follow TB interferon. Follow Fungitell, Aspergillus galactomannan, coccidioidomycosis serology, and urine histoplasma PATIENT'S NAME: MUNAJIMMIE [facility] AGE: 61 Y [address] ROOM: [address] [address] LOCATION: [facility] ADMIT DATE: 03/28/2017 Consultation DISCHARGE DATE: FAMILY PHYSICIAN: PHYSICIAN, NO ATTENDING PHYSICIAN: Miryam PAGAN antigen. Highly recommend to get a bronchoscope to get a deep sample including biopsies to rule out metastatic cancer. ID will see in one week. MD EDIN COUGHLIN/grzegorz /[id number] d: 03/29/17 2240 t: 03/30/17 0825, CONSULTATION REPORT
[2017-03-28 12:33] LABS: BASOPHIL % 0.5 %; EOSINOPHIL # 0.1 K/uL (0.0-0.5); EOSINOPHIL % 1.1 %; HEMATOCRIT 31.8 % (37.0-53.0); HEMOGLOBIN 10.7 g/dL (11.0-16.0); IMMATURE GRANULOCYTE # 0.2 K/uL (0.0-0.3); IMMATURE GRANULOCYTE % 3.7 %; LYMPHOCYTE # 1.2 K/uL (0.8-4.0); LYMPHOCYTE % 20.4 %; MCH 30.1 pg (27.0-34.0); MCHC 33.6 gm/dL (32.0-36.5); MCV 89.6 fl (83.0-98.0); MONOCYTE # 0.9 K/uL (0.0-1.0); MONOCYTE % 15.3 %; MPV 9.3 fl (9.4-12.4); NEUTROPHIL # (ANC) 3.3 K/uL (1.4-9.0); NRBC % 0 /100WBC (0-0.00); PLATELET COUNT 267 K/uL (150-450); RBC 3.55 M/uL (3.50-5.50); RDW-CV 12.3 % (11.9-14.6); WBC 5.6 K/uL (4.0-11.0)
[2017-03-28 12:41] LABS: INR - (THERAPEUTIC) 1.08 (0.92-1.07); PROTIME 11.4 SECONDS (9.8-11.4); PTT 34 SECONDS (25-32)
[2017-03-28 12:55] LABS: ALBUMIN 2.5 gm/dL (3.5-5.0); ALK PHOS 75 IU/L (33-138); ALT 29 IU/L (12-78); ANION GAP 12.8 (10.0-19.0); AST 19 IU/L (10-40); BLOOD UREA NITROGEN 9 mg/dL (6-24); CALCIUM 8.3 mg/dL (8.5-10.5); CHLORIDE 103 mMol/L (96-110); CO2 27 mMol/L (22-32); CPK 37 IU/L (35-332); CREATININE 0.8 mg/dL (0.6-1.3); ESTIMATED GFR (MDRD EQUATION) > 60; MAGNESIUM 1.7 mg/dL (1.8-2.6); POTASSIUM 3.8 mMol/L (3.7-5.1); SODIUM 139 mMol/L (135-145); TOTAL BILIRUBIN 0.2 mg/dL (0.0-1.5); TOTAL PROTEIN 7.1 g/dL (6.0-8.4)
[2017-03-28 15:01] LABS: BILIRUBIN URINE NEGATIVE (NEGATIVE); BLOOD URINE NEGATIVE /UL (NEGATIVE); GLUCOSE URINE NEGATIVE (NEGATIVE); KETONE URINE NEGATIVE (NEGATIVE); LEUKOCYTES URINE NEGATIVE /UL (NEGATIVE); NITRITE URINE NEGATIVE (NEGATIVE); PROTEIN URINE NEGATIVE (NEGATIVE); SPEC GRAVITY URINE 1.005 (1.003-1.035); UROBILINOGEN URINE NORMAL (NORMAL)
[2017-03-28 15:02] LABS: COLOR URINE YELLOW (YELLOW); TURBIDITY URINE CLEAR (CLEAR)
[2017-03-28 15:24] LABS: CPK 38 IU/L (35-332)
[2017-03-28] MEDS ORDERED: PROTONIX40 MG PO (19:15)
[2017-03-28] MEDS ORDERED: XANAX0.5 MG PO (19:15)
[2017-03-28] MEDS ORDERED: DILAUDID 4MG4 MG PO (19:16)
[2017-03-28] MEDS ORDERED: AMOX TR-K CLV1 EAC3 PO (19:17)
[2017-03-28] MEDS ORDERED: COMPAZINE10 MG PO (19:18)
[2017-03-28] MEDS ORDERED: DULCOLAX5 MG PO (19:18)
[2017-03-28] MEDS ORDERED: OXYCONTIN EXTEN10 MG PO (19:19)
[2017-03-28] MEDS ORDERED: DECADRON4 MG PO (19:20)
[2017-03-28] MEDS ORDERED: ONDANSETRON ODT8 MG PO (19:21)
--- NOTE | 2017-03-28 21:11 | NUR ---
PATIENT IS 61 YO MALE ADMITTED THIS EVENING WITH POSSIBLE TUBERCULOSIS VS METASTATIS CAVITATION FROM SQUAMOUS CELL LUNG CANCER. PATIENT STATES HE JUST MOVED FROM [place]. WAS THERE AND HAD HIS FIRST CHEMO TREATMENT 3 WEEKS AGO. HE STATES IT TOOK ALMOST EVERYTHING OUT OF HIM. STATES HE DOESN'T KNOW IF HE CAN DO ANY MORE LIKE THAT. STATES HE MOVED HERE TO BE CLOSER TO HIS KIDS AND IS LIVING WITH HIS SISTER AT THIS TIME. PATIENT HAS A PORT ACCESSED IN RIGHT CHEST WITH FLUIDS INFUSING WITHOUT DIFFICULTY AT THIS TIME. PATIENT SUCTIONS HIS TRACH X2 DURING INTERVIEW. EDUCATION IS GIVEN DOCUMENTED. PATIENT DENIES QUESTIONS. PNEUMATICS ARE ON BILAT CALVES. YELLOW SOCKS ON. CALL LIGHT IS WITHIN REACH. PATIENT DENIES NEEDS AT THIS TIME. REPORT IS GIVEN TO VIRGIE CULVER.
[2017-03-29 07:02] LABS: ALBUMIN 2.2 gm/dL (3.5-5.0); ALK PHOS 67 IU/L (33-138); ALT 25 IU/L (12-78); AST 14 IU/L (10-40); BLOOD UREA NITROGEN 6 mg/dL (6-24); CHLORIDE 107 mMol/L (96-110); CO2 27 mMol/L (22-32); CREATININE 0.7 mg/dL (0.6-1.3); ESTIMATED GFR (MDRD EQUATION) > 60; SODIUM 140 mMol/L (135-145); TOTAL BILIRUBIN 0.2 mg/dL (0.0-1.5)
[2017-03-29 07:05] LABS: BASOPHIL % 0.4 %; EOSINOPHIL # 0.1 K/uL (0.0-0.5); EOSINOPHIL % 1.2 %; HEMATOCRIT 27.7 % (37.0-53.0); HEMOGLOBIN 9.2 g/dL (11.0-16.0); IMMATURE GRANULOCYTE # 0.2 K/uL (0.0-0.3); IMMATURE GRANULOCYTE % 3.7 %; LYMPHOCYTE % 19.8 %; MCHC 33.2 gm/dL (32.0-36.5); MCV 90.2 fl (83.0-98.0); MONOCYTE # 0.8 K/uL (0.0-1.0); MONOCYTE % 15.8 %; MPV 9.5 fl (9.4-12.4); NEUTROPHIL % 59.1 %; NRBC % 0 /100WBC (0-0.00); PLATELET COUNT 240 K/uL (150-450); RBC 3.07 M/uL (3.50-5.50); RDW-CV 12.5 % (11.9-14.6); WBC 5.1 K/uL (4.0-11.0)
--- NOTE | 2017-03-29 07:40 | NUR ---
Significant Event: CARES FOR . PATIENT ADMITTED AT BEGINNING OF SHIFT. PLACED IN AIRBORNE/CONTACT ISOLATION UNTIL RULE OUT TB. HAD CT SCAN AND SHOWED BILAT CONSOLIDATIONS SUSPICIOUS OF INFECTIOUS ETIOLOGY VS METS. DOES HAVE OROPHARYNGEAL CANCER. CURRENTLY UNDERGOING CHEMO. HAS TRACH, DOES MOST TRACH CARES HIMSELF. OBTAINED FIRST SPUTUM SAMPLE (RT COLLECTED), NEED 2 MORE. HAS PEG TUBE, IS TO RESUME BOLUS TUBE FEEDINGS, UNABLE TO RESTART OVERNIGHT DUE TO TUBE FEEDING UNAVAILABLE. ORDER IS 240ML Q3HRS WITH 60ML WATER FLUSH BEFORE AND AFTER BOLUS TUBE FEED. DOES HAVE PAIN TO R) SIDE OF HEAD, LAST PAIN MED WAS 0359 WITH RELIEF NOTED. HAS PORT TO R) CHEST FLUSHES WELL AND GOOD BLOOD RETURN. IV FLUIDS GOING AT 125ML/HR AND ALSO IV ATB. HAS SORE ON BOTTOM LIP. VOIDING WELL. HAS DIARRHEA, STOOL SAMPLE TAKEN AND ALL TESTS NEG. B/P IN 90'S AT TIMES. RESPIRATORY RATE UP IN 30'S FOR A SHORT TIME, VERY SHALLOW BREATHES BUT IMPROVED AFTER SUCTIONING. LUNG SOUNDS CAN BE COARSE AT TIMES. NOT TEMPS NOTED. SLEPT WELL THROUGH NIGHT. Follow up: MONITOR LABS, VITALS. COLLECT SPUTUM SAMPLES. RESTART TUBE FEEDINGS. CONTINUES ISOLATION PRECAUTIONS.
--- NOTE | 2017-03-29 16:33 | NUR ---
Significant Event: Patient is alert and oriented x3. VSS and on RA. Trach in place- patient does own self trach cares and suction- explained the sterile technique but does not follow very well. Explained the importance of that. Gauze changed underneath the trach and did clean around the trach. PEG tube in place- so far has been able to tolerate 2 tube feedings- another one is due at 1700. [facility] Soft diet. Doing well with that. No swallowing problems noted. Right chest port- fluids infusing. IV ABX. Need 2 more sputum samples. One tomorrow in the am and then Monday in the am to R/O the TB. Up with SBA. Having diarrhea but is negative for C.Diff. Oxygen levels have been good, on RA. Tube feedings every 3 hours- 240 mls Jevity 1.5 paty with flush of 60ml of water before and after. Negative airflow isolation to R/O TB. Cooperative with cares.
[2017-03-30 03:01] LABS: BASOPHIL % 0.5 %; EOSINOPHIL # 0.1 K/uL (0.0-0.5); EOSINOPHIL % 1.2 %; HEMATOCRIT 28.8 % (37.0-53.0); HEMOGLOBIN 9.5 g/dL (11.0-16.0); IMMATURE GRANULOCYTE # 0.2 K/uL (0.0-0.3); IMMATURE GRANULOCYTE % 3.2 %; LYMPHOCYTE # 1.1 K/uL (0.8-4.0); LYMPHOCYTE % 20.3 %; MCH 29.4 pg (27.0-34.0); MCV 89.2 fl (83.0-98.0); MONOCYTE % 17.1 %; MPV 9.1 fl (9.4-12.4); NEUTROPHIL # (ANC) 3.2 K/uL (1.4-9.0); NEUTROPHIL % 57.7 %; NRBC % 0 /100WBC (0-0.00); PLATELET COUNT 247 K/uL (150-450); RBC 3.23 M/uL (3.50-5.50); RDW-CV 12.3 % (11.9-14.6); WBC 5.6 K/uL (4.0-11.0)
--- NOTE | 2017-03-30 04:22 | NUR ---
Significant Event: Patient alert and oriented x3. Up with standby assist. Vitals stable on room air. Fluids and antibiotics continue through right chest port with good blood return. Patient does own trach cares, attempted to reinforce it as sterile procedure but he states "this is what I have to work with at home, I do the best I can". Thick creamy, at times brown tinged, sputum. Lung sounds coarse. Jevity tube feedings every 3hrs with 60ml H2o flushes before and after. Held the 0200 feeding due to patient refusing as felt very full. Residuals 0-30mls. Scheduled pain meds given and prn PO dilaudid given last at 0137 with relief for right sided head pain. Pleasant/cooperative with cares Follow up: continue airborne isolation precautions
[2017-03-30 06:09] LABS: ALBUMIN 2.3 gm/dL (3.5-5.0); ALK PHOS 69 IU/L (33-138); ALT 24 IU/L (12-78); ANION GAP 12.3 (10.0-19.0); AST 16 IU/L (10-40); BLOOD UREA NITROGEN 7 mg/dL (6-24); CHLORIDE 107 mMol/L (96-110); CO2 26 mMol/L (22-32); CREATININE 0.7 mg/dL (0.6-1.3); ESTIMATED GFR (MDRD EQUATION) > 60; POTASSIUM 4.3 mMol/L (3.7-5.1); SODIUM 141 mMol/L (135-145); TOTAL BILIRUBIN 0.2 mg/dL (0.0-1.5); TOTAL PROTEIN 6.2 g/dL (6.0-8.4)
--- NOTE | 2017-03-30 18:59 | NUR ---
Significant Event: ALERT & ORIENTED. VSS, AFEBRILE, ROOM AIR. PT DOES OWN TRACH CARES. PEG TUBE JEVITY FEEDINGS Q3 HOURS TO GRAVITY 240 ML WITH 60 ML FLUSH BEFORE AND AFTER, MECHANICAL SOFT DIET. DILAUDID GIVEN FOR RIGHT FACIAL PAIN. R) CHEST PORT WITH NS AT 125 ML/HR. UP WITH SBA. IRIS CUSHION IN BED. Follow up: CONTINUE TB PRECAUTIONS, LAST SPUTUM CULTURE TO BE OBTAINED MONDAY AM, FIRST TWO NEGATIVE.
--- NOTE | 2017-03-31 03:30 | NUR ---
SIGNIFICANT EVENT: Patient alert & oriented. VSS on RA. R) chest port is SL, intermittent vancomycin. Trach and Peg tube. NPO since MN - bronchoscopy scheduled for tomorrow afternoon. Refused first couple TF's, took one at 2330 - 60 flush, 240 Jevity and another 60 flush after Jevity. Tolerated well. SBA to BR. Airborne isolation until TB can be ruled out - if 03/31/17 TB test comes back negative again (3rd day in a row), then can be removed from airborne precautions. Reddened area to coccyx - iris cushion on bed and pt does tilt self side to side. PO dilaudid q3H - last given at 0300. Pleasant and cooperative with cares.
[2017-03-31 06:23] LABS: INR - (THERAPEUTIC) 1.17 (0.92-1.07); PROTIME 12.3 SECONDS (9.8-11.4)
[2017-03-31 06:36] LABS: ALBUMIN 2.2 gm/dL (3.5-5.0); ALK PHOS 68 IU/L (33-138); ALT 22 IU/L (12-78); ANION GAP 10.9 (10.0-19.0); AST 15 IU/L (10-40); BLOOD UREA NITROGEN 5 mg/dL (6-24); CHLORIDE 104 mMol/L (96-110); CO2 28 mMol/L (22-32); CREATININE 0.6 mg/dL (0.6-1.3); ESTIMATED GFR (MDRD EQUATION) > 60; POTASSIUM 3.9 mMol/L (3.7-5.1); SODIUM 139 mMol/L (135-145)
[2017-03-31 06:37] LABS: TOTAL BILIRUBIN 0.4 mg/dL (0.0-1.5)
[2017-03-31 06:41] LABS: BASOPHIL % 0.4 %; EOSINOPHIL # 0.1 K/uL (0.0-0.5); EOSINOPHIL % 1.2 %; HEMOGLOBIN 8.8 g/dL (11.0-16.0); IMMATURE GRANULOCYTE # 0.1 K/uL (0.0-0.3); IMMATURE GRANULOCYTE % 1.8 %; LYMPHOCYTE # 0.9 K/uL (0.8-4.0); LYMPHOCYTE % 19.3 %; MCHC 33.8 gm/dL (32.0-36.5); MCV 88.7 fl (83.0-98.0); MONOCYTE # 0.8 K/uL (0.0-1.0); MONOCYTE % 16.4 %; MPV 9.1 fl (9.4-12.4); NEUTROPHIL % 60.9 %; NRBC % 0 /100WBC (0-0.00); PLATELET COUNT 253 K/uL (150-450); RBC 2.93 M/uL (3.50-5.50); RDW-CV 12.6 % (11.9-14.6); WBC 4.9 K/uL (4.0-11.0)
--- NOTE | 2017-03-31 10:17 | NUR ---
Met with patient today at bedside. Introduced myself and the role of the CM department. Patient states that he is living with his sister Jacki and he gives verbal consent to talk with Jacki. He moved here from [place]. He has full disability, but no other form of insurance. He states he had Medicaid while living in [place], but has not had a chance to apply for [place] Medicaid. He states he thought that his sister was doing the application for this. I will follow up with her on this. I also made a referral to [facility] to see if they can assist with the application. Shayna states they are waiting to see if patient's [place] Medicaid is still active and if it is they will meet with patient and assist him with getting it cancelled. This needs to be done prior to completing the [place] Medicaid Application per Shayna. He does not have any other needs at this time. A CM will continue to follow and offer supports as needed.
--- NOTE | 2017-03-31 14:46 | NUR ---
Significant event: Patient is alert and oriented x3. VSS. on room air. Has peg tube and trach. Does own Trach cares. UP independently to SBA, will call if needs assistance. Uses urinal by bedside for I&O. Has been NPO since midnight for bronchoscopy with possible bx this afternoon. Has had sips of water with meds. Waiting for the last sputum culture results to come back before going to endo. Dilaudid and Zofran last at 1110. Cooperative with cares.
[2017-04-01 03:08] LABS: BASOPHIL % 0.6 %; EOSINOPHIL # 0.1 K/uL (0.0-0.5); EOSINOPHIL % 1.7 %; HEMATOCRIT 27.2 % (37.0-53.0); HEMOGLOBIN 9.2 g/dL (11.0-16.0); IMMATURE GRANULOCYTE # 0.1 K/uL (0.0-0.3); IMMATURE GRANULOCYTE % 1.5 %; LYMPHOCYTE # 1.1 K/uL (0.8-4.0); LYMPHOCYTE % 20.2 %; MCH 29.8 pg (27.0-34.0); MCHC 33.8 gm/dL (32.0-36.5); MONOCYTE # 0.9 K/uL (0.0-1.0); MONOCYTE % 15.6 %; MPV 9.2 fl (9.4-12.4); NEUTROPHIL # (ANC) 3.3 K/uL (1.4-9.0); NEUTROPHIL % 60.4 %; NRBC % 0 /100WBC (0-0.00); PLATELET COUNT 249 K/uL (150-450); RBC 3.09 M/uL (3.50-5.50); RDW-CV 12.5 % (11.9-14.6); WBC 5.4 K/uL (4.0-11.0)
[2017-04-01 03:29] LABS: ALBUMIN 2.3 gm/dL (3.5-5.0); ALK PHOS 71 IU/L (33-138); ALT 20 IU/L (12-78); AST 16 IU/L (10-40); BLOOD UREA NITROGEN 5 mg/dL (6-24); CALCIUM 8.2 mg/dL (8.5-10.5); CHLORIDE 104 mMol/L (96-110); CO2 26 mMol/L (22-32); CREATININE 0.8 mg/dL (0.6-1.3); ESTIMATED GFR (MDRD EQUATION) > 60; SODIUM 139 mMol/L (135-145); TOTAL PROTEIN 6.4 g/dL (6.0-8.4)
[2017-04-01 03:31] LABS: TOTAL BILIRUBIN 0.3 mg/dL (0.0-1.5)
--- NOTE | 2017-04-01 04:02 | NUR ---
Pt. alert and oriented. RA. VSS. PEG tube. Feedings are to be started but patient has felt too full this shift to start. IV Antibx. R) chest port. Tracheostomy - pt. does own cares. Up IND in room. Airborne precautions for possible TB. Pending last sputum culture in lab. Uses urinal at bedside. PO Dilaudid every 4 hours. Pleasant and cooperative with cares.
--- NOTE | 2017-04-01 16:06 | NUR ---
A-NUTRITION F/U SPOKE WITH PT RE: APPETITE AND TF. PT REPORTS GOOD APPETITE. HIS FAMILY IS BRINKING HIM IN FOOD AT TIMES. HE HAD AN [employer] DIP FOR LUNCH, ALONG WITH A MILKSHAKE. PT REPORTS HE HAS A MILKSHAKE EVERY DAY. TOLERATING BOLUS FEEDINGS OF JEVITY 1.5 240 ML 6 TIMES DAILY. PT REPORTS THAT AFTER HE HAD HIS PEG IN, HE GAINED 36 POUNDS OVER 5-6 WEEKS. AT HOME HE EATS THREE MEALS A DAY AND THEN BOLUS FEEDS 240 ML JEVITY 1.5 6 TIMES DAILY. HE IS GOING TO START DAILY RADIATION ON HIS THROAT, AND WILL NOT BE ABLE TO TAKE ANY NUTRITION BY MOUTH, PER PT. NO NEW WT SINCE ADMIT LABS: NA 139, K+ 4.0, GLU 108, BUN 5, BROACH GRINDER 0.8, ALB 2.3 MEDS: 03/30-VANCOMYCIN STARTED AND 03/31-MERREM STARTED DIET RX: REGULAR WITH 240 ML JEVITY 1.5 6 TIMES DAILY BOLUS FEEDS VIA PEG PO INTAKE HAS BEEN 0-100%; AVG 79% SINCE ADMIT. EST NUTR NEEDS: 9884-0019 KCALS AND 81-101 GM PROTEIN. BOLUS FEEDINGS PROVIDING 2160 KCALS, 92 GM PROTEIN, AND 1094 ML FREE WATER + H2O FLUSHES. D-AT NUTRITION RISK W/1)INCREASED NUTRIENT NEEDS R/T CATABOLIC DZ AEB DX, PREVIOUS WT LOSS, NEED FOR PEG, RELIANCE ON ENTERAL NUTRITION. I-CONTINUE W/CURRENT DIET RX M/E-GOAL: PO AND TF TO MEET 100% OF NUTRIENT NEEDS 1)F/U PO INTAKE, TF, AND POC IN 3-5 DAYS 2)ASSIST NEEDED
--- NOTE | 2017-04-01 18:17 | NUR ---
AAOx3. Cooperative with cares. Tolerating soft diet well. Up ad brian in room. Does own trach cares. Port to right chest with GBR; intermittent Abx. PEG tube with feedings several times/day as tolerated. Tolerating 360ml feeding and 200ml flushes. Bottom sore with fine slit above coccyx. Dilaudid PO with noted relief as well as scheduled pain meds. Out of isolation; negative for TB.
--- NOTE | 2017-04-02 04:10 | NUR ---
Pt. alert and oriented x3. RA. Hypotensive this shift. Gave 1L of fluid bolus that increased BP a little bit. Up ad brian. PEG tub with 6 feedings to be done between both shifts. Pt and family would like the patient to be woke up to do these usually around every 3-4 hours. Does own trach cares. Intermittant IV antibx. PRN PO Dilaudid every 3 hours. R) Chest port with good blood return. Taken out of airborne precautions. Uses urinal at bedside. Cooperative with cares.
[2017-04-02 07:42] LABS: BASOPHIL % 0.2 %; EOSINOPHIL # 0.1 K/uL (0.0-0.5); EOSINOPHIL % 2.2 %; HEMATOCRIT 27.7 % (37.0-53.0); HEMOGLOBIN 9.2 g/dL (11.0-16.0); IMMATURE GRANULOCYTE # 0.1 K/uL (0.0-0.3); IMMATURE GRANULOCYTE % 1.4 %; LYMPHOCYTE # 0.9 K/uL (0.8-4.0); MCHC 33.2 gm/dL (32.0-36.5); MCV 90.2 fl (83.0-98.0); MONOCYTE # 0.7 K/uL (0.0-1.0); MONOCYTE % 16.2 %; MPV 9.3 fl (9.4-12.4); NEUTROPHIL # (ANC) 2.4 K/uL (1.4-9.0); NRBC % 0 /100WBC (0-0.00); PLATELET COUNT 224 K/uL (150-450); RBC 3.07 M/uL (3.50-5.50); RDW-CV 12.7 % (11.9-14.6); WBC 4.1 K/uL (4.0-11.0)
[2017-04-02 07:58] LABS: ALBUMIN 2.3 gm/dL (3.5-5.0); ALK PHOS 73 IU/L (33-138); ALT 16 IU/L (12-78); ANION GAP 10.2 (10.0-19.0); AST 11 IU/L (10-40); CALCIUM 8.1 mg/dL (8.5-10.5); CHLORIDE 105 mMol/L (96-110); CO2 30 mMol/L (22-32); CREATININE 0.7 mg/dL (0.6-1.3); ESTIMATED GFR (MDRD EQUATION) > 60; POTASSIUM 4.2 mMol/L (3.7-5.1); SODIUM 141 mMol/L (135-145); TOTAL PROTEIN 6.3 g/dL (6.0-8.4)
[2017-04-02 07:59] LABS: BLOOD UREA NITROGEN 8 mg/dL (6-24)
[2017-04-02 08:00] LABS: TOTAL BILIRUBIN 0.2 mg/dL (0.0-1.5)
--- NOTE | 2017-04-02 15:15 | NUR ---
Significant Event: Patient alert and oriented x3. VSS on RA. Up ad brian- walked hallways several times today. R) chest port and PEG tube with 6 feedings to be done split between both shifts. Patient does own trach cares. Patient C/O pain 6-7 thoughout day. Dilaudid given q3 PRN. Zofran given for nausea around 1300- relief noted- no emisis. 1 soft BM today. CBC, BMP and procal done this AM. Chest Xray this morning due to SOB. IV Vanco started. Gave benadryl x1. Started Fluconazole 200mg PO. Neosporin to groin area TID- groin is very reddened and broken down. Patient states he has a "cyst" on bottom but refuses assessment and states he has had it on and off for 20 years and will resolve itself. NPO after midnight tonight for bronchoscopy tomorrow. Patient hypotensive at times.
--- NOTE | 2017-04-03 03:39 | NUR ---
Pt. alert and oriented. RA. VSS - Pressures have been good this shift. Up ad brian. R) Chest port with intermittant IV antibx. PEG tube with 6 feedings to be done per patient's request. Has been NPO since midnight for bronchscopy scheduled at 1300. Preop checklist started - Risks and benefits not done on chart. Does own trach cares. PO PRN Dilaudid every 4 hours. Last pain given at 0230. 1 soft BM this shift. IV vanco and meropenam. Refuses for assessment on bottom for cyst that he says he has. Neosporin to groin for reddedned area. Uncooperative at times with feedings.
[2017-04-03 06:15] LABS: ANION GAP 10.2 (10.0-19.0); BLOOD UREA NITROGEN 8 mg/dL (6-24); CALCIUM 8.2 mg/dL (8.5-10.5); CHLORIDE 104 mMol/L (96-110); CO2 30 mMol/L (22-32); CREATININE 0.7 mg/dL (0.6-1.3); ESTIMATED GFR (MDRD EQUATION) > 60; POTASSIUM 4.2 mMol/L (3.7-5.1); SODIUM 140 mMol/L (135-145)
[2017-04-03 06:42] LABS: BASOPHIL % 0.7 %; EOSINOPHIL # 0.2 K/uL (0.0-0.5); EOSINOPHIL % 3.6 %; HEMATOCRIT 28.1 % (37.0-53.0); HEMOGLOBIN 9.5 g/dL (11.0-16.0); IMMATURE GRANULOCYTE # 0.1 K/uL (0.0-0.3); IMMATURE GRANULOCYTE % 1.6 %; LYMPHOCYTE # 0.9 K/uL (0.8-4.0); LYMPHOCYTE % 20.4 %; MCH 30.5 pg (27.0-34.0); MCHC 33.8 gm/dL (32.0-36.5); MCV 90.4 fl (83.0-98.0); MONOCYTE # 0.9 K/uL (0.0-1.0); MONOCYTE % 19.8 %; MPV 9.6 fl (9.4-12.4); NEUTROPHIL # (ANC) 2.4 K/uL (1.4-9.0); NEUTROPHIL % 53.9 %; NRBC % 0 /100WBC (0-0.00); PLATELET COUNT 267 K/uL (150-450); RBC 3.11 M/uL (3.50-5.50); RDW-CV 12.7 % (11.9-14.6); WBC 4.5 K/uL (4.0-11.0)
[2017-04-03 10:08] LABS: ALBUMIN 2.4 gm/dL (3.5-5.0); ALK PHOS 71 IU/L (33-138); ALT 15 IU/L (12-78); ANION GAP 10.4 (10.0-19.0); AST 12 IU/L (10-40); BLOOD UREA NITROGEN 7 mg/dL (6-24); CALCIUM 8.4 mg/dL (8.5-10.5); CHLORIDE 103 mMol/L (96-110); CO2 31 mMol/L (22-32); CREATININE 0.7 mg/dL (0.6-1.3); ESTIMATED GFR (MDRD EQUATION) > 60; POTASSIUM 4.4 mMol/L (3.7-5.1); SODIUM 140 mMol/L (135-145); TOTAL BILIRUBIN 0.2 mg/dL (0.0-1.5); TOTAL PROTEIN 6.7 g/dL (6.0-8.4)
[2017-04-03 10:11] LABS: BASOPHIL % 0.4 %; EOSINOPHIL # 0.1 K/uL (0.0-0.5); EOSINOPHIL % 2.9 %; HEMATOCRIT 28.8 % (37.0-53.0); HEMOGLOBIN 9.4 g/dL (11.0-16.0); IMMATURE GRANULOCYTE # 0.1 K/uL (0.0-0.3); IMMATURE GRANULOCYTE % 1.2 %; LYMPHOCYTE # 1.1 K/uL (0.8-4.0); MCH 29.7 pg (27.0-34.0); MCHC 32.6 gm/dL (32.0-36.5); MCV 90.9 fl (83.0-98.0); MONOCYTE # 0.8 K/uL (0.0-1.0); MONOCYTE % 15.4 %; MPV 9.6 fl (9.4-12.4); NEUTROPHIL # (ANC) 2.8 K/uL (1.4-9.0); NEUTROPHIL % 58.1 %; NRBC % 0 /100WBC (0-0.00); PLATELET COUNT 250 K/uL (150-450); RBC 3.17 M/uL (3.50-5.50); RDW-CV 12.6 % (11.9-14.6); WBC 4.9 K/uL (4.0-11.0)
--- NOTE | 2017-04-03 14:56 | NUR ---
Significant Event: Patient up ad brian in room. Has been NPO since midnight last night. Called down to procedure area and they are planning to call patient down around [address] Cheng doesn't get into the hospital today until around 1600 for the bronchoscopy. Dilaudid given last at 1230 with relief noted. Patient to go down for bronchoscopy in about 10 minutes. Follow up: Recovery when patient gets back to floor.
--- NOTE | 2017-04-03 21:35 | NUR ---
1824 RECIEVED POST BRONCH. PATIENT RESTING COMFORTABLE. IV INFUSES INTO R) CHEST PORT. PATIENT EASILY AWAKENS AND NODS HEAD. 0 RADIOLOGY COMPLETED CHEST X-RAY. 190 PATIENT MORE AWAKE AT THIS TIME. IT IS DIFFICULT TO COMMUNICATE WITH HIM SO WE COMMUNICATED VIA HIM WRITTING STUFF DOWN. HE DOES NOT LIKE HIS HUMIDIFIED O2. HE IS COUGHING AND BRINGING UP SECRETIONS BLOOD TINGED MUCUS. STATES THAT HE IS HUNGRY. 1914 REQUESTS TO USE URINAL. HAS SOME DIFFICULTY STARTING HIS STREAM. 1924 VOIDED 350 ML CLEAR YELLOW. CONTINUES TO EASILY CLEAR HIS SECRETIONS. RESTS AT INTERVALS. 1939 TELLS ME THAT HE DOES NOT LIKE HUMIDIFED O2 BECAUSE HE FEELS LIKE HE IS DROWNING. 1944 REPORT CALLED TO VIVI GARVIN ON MED/SURG. 1999 PATIENT TRANSFERED TO MED/SURG. TRANSFERED AMBULITORY TO BATHROOM WHEN HE ARRIVED IN HIS ROOM.
[2017-04-04 05:11] LABS: ALBUMIN 2.3 gm/dL (3.5-5.0); ALK PHOS 74 IU/L (33-138); ALT 16 IU/L (12-78); ANION GAP 10.4 (10.0-19.0); AST 12 IU/L (10-40); BLOOD UREA NITROGEN 8 mg/dL (6-24); CALCIUM 8.1 mg/dL (8.5-10.5); CHLORIDE 103 mMol/L (96-110); CO2 30 mMol/L (22-32); CREATININE 0.8 mg/dL (0.6-1.3); ESTIMATED GFR (MDRD EQUATION) > 60; POTASSIUM 4.4 mMol/L (3.7-5.1); SODIUM 139 mMol/L (135-145); TOTAL PROTEIN 6.4 g/dL (6.0-8.4)
[2017-04-04 05:13] LABS: TOTAL BILIRUBIN 0.3 mg/dL (0.0-1.5)
--- NOTE | 2017-04-04 05:21 | NUR ---
PATIENT RETURNED TO FLOOR AT 1999. ALERT AND ORIENTATED. AMBULATES AT [facility] IN ROOM. RT CHEST PORT. TRACH SIZE CHANGED TO 8 WILL PUT ORGINAL TRACT BACK IN THE AM. UNABLE TO TALK WITH LARGER TRACH. REFUSED MOIST O2. HAD DILAUDID X2 FJOR PAIN. JEVITY 1.5 FEEDING Q 3 HR. VS B/P IS HYOTENSISVE. PAITENT HAD A SANDWHICH AND SOUP WHEN RETURNED TO FLOOR.
[2017-04-04 05:24] LABS: BASOPHIL % 0.2 %; EOSINOPHIL # 0.2 K/uL (0.0-0.5); HEMOGLOBIN 8.9 g/dL (11.0-16.0); IMMATURE GRANULOCYTE % 0.5 %; LYMPHOCYTE % 18.3 %; MCV 90.9 fl (83.0-98.0); MONOCYTE # 0.7 K/uL (0.0-1.0); MONOCYTE % 12.8 %; MPV 9.6 fl (9.4-12.4); NEUTROPHIL # (ANC) 3.7 K/uL (1.4-9.0); NEUTROPHIL % 65.2 %; NRBC % 0 /100WBC (0-0.00); PLATELET COUNT 242 K/uL (150-450); RBC 2.97 M/uL (3.50-5.50); RDW-CV 12.9 % (11.9-14.6); WBC 5.6 K/uL (4.0-11.0)
--- NOTE | 2017-04-04 13:21 | NUR ---
Received consult to arrange home health care with trach supplies. Patient is currently self pay. I called and spoke with Lisa with [facility] to make sure they are working with patient. She states that they are waiting for an email back from [place] to see if [place] medicaid is active for March. Then it needs to be decided if he should keep his [place] medicaid open for March to cover his medical expenses (scripts/hospital) or close it and try to apply for [place] medicaid. I called and spoke with Adelina at [facility] who stated they do take on self pay patients but the patient is responsible for the cost fo all supplies, $220 per visit and must have a caregiver in the home. I also called and spoke with Radha at [facility] who stated they could also take the patient on service but he would be responsible for all expenses. [facility] can accept [place] medicaid if patients [place] medicaid is active. Will continue to work on [facility] for patient.
--- NOTE | 2017-04-04 13:23 | NUR ---
A - NUTRITON FOLLOW-UP. OUT OF ISOLATION FOR TB, NEGATIVE. LABS: GLU 166, ALB 2.3 MEDS: REVIEWED. DIET: REGULAR WITH TUBE FEEDING VIA PEG W/ JEVITY 1.5 BOLUS FEEDING 240ML 6 TIMES PER DAY WITH 60ML WATER FLUSHES BEFORE AND AFTER EACH FEEDING= 2160 KCAL, 92 GRAMS PROTEIN, 1094ML FREE WATER. TOLERATING WELL PER RN. PO INTAKE 43% X9 MEALS. EST NEEDS: 1330-2181 KCAL, 81-101 GRAMS PROTEIN, FLUID NEEDS: 1ML/KCAL D - INADEQUATE ORAL INTAKE RELATED TO DIFFICULTY SWALLOWING EVIDENCED BY NEED FOR ENTERAL NUTRITION. I - CONTINUE WITH JEVITY 1.5 BOLUS FEEDING 240ML 6 TIMES PER DAY WITH 60ML WATER FLUSHES BEFORE AND AFTER EACH FEEDING. M/E - GOAL: PT WILL CONTINUE TO TOLERATE ENTERAL NUTRITION AND MEET >75% OF NEEDS IN 3-5 DAYS.
--- NOTE | 2017-04-04 14:33 | NUR ---
Significant Event: Patient had slight temp this a.m. at 99.6 but at recheck with 2nd vitals temp was 98.8. Patient has been diligent about coughing up secretions and suctioning as needed. Two of patient's tube feedings are done and patient is requesting another one at 1715, then patient said 3 during the night would work. Last dilaudid given at 1347 and plan is to give another pain pill with the tube feeding. Patient has worked with physical and occupational therapy today. P.T. asked about speech therapy consult as patient lost his voice with the last trach change done yesterday. Patient receptive to this and Dr. Ta gave order for speech therapy to consult--order in and therapy notified in case they can still squeeze him in today. Blood pressure on the lower side both times at 97/55 and 98/60. Both times heart rate in the 60's and patient has not had any complaints of dizziness. Did rate pain in his jaw at a 6 which is better than yesterday which was more a 7-8. Patient had 2 loose BM's today. Not watery or liquid, but only semiformed. Encouraged patient to order yogurt with meals to help with the bacteria in patient's colon. Patient verbalized understanding. Have been able to communicate with patient today. Some with reading lips and whisper voice and some with him writing on paper. Follow up: Continue to monitor.
[2017-04-05 05:10] LABS: ALBUMIN 2.4 gm/dL (3.5-5.0); ALK PHOS 68 IU/L (33-138); ALT 14 IU/L (12-78); ANION GAP 10.1 (10.0-19.0); AST 11 IU/L (10-40); BLOOD UREA NITROGEN 7 mg/dL (6-24); CALCIUM 8.2 mg/dL (8.5-10.5); CHLORIDE 103 mMol/L (96-110); CO2 29 mMol/L (22-32); CREATININE 0.7 mg/dL (0.6-1.3); ESTIMATED GFR (MDRD EQUATION) > 60; POTASSIUM 4.1 mMol/L (3.7-5.1); SODIUM 138 mMol/L (135-145); TOTAL PROTEIN 6.5 g/dL (6.0-8.4)
[2017-04-05 05:19] LABS: TOTAL BILIRUBIN 0.2 mg/dL (0.0-1.5)
--- NOTE | 2017-04-05 05:24 | NUR ---
A&O X3 AMBULATES INDEPENTENLY IN ROOM AND HALLS FOR WALK. TRACH PATIENT TAKES CARE ON IT HIMSELF. NO TEMPERATURE THIS SHIFT DID COMPLAIN OF NIGHT SWEATS. PATIENT STATED THAT HE ATE A LOT TODAY AND ONLY HAS REQUESTED 2 TUBE FEEDINGS THIS SHIFT STATED HE WAS TOO FULL. PAITENT HAD 4 LOOSE BM'S AND STATES HE IS WEAK. PATIENT ABLE TO TALK WITH NEW TRACH. VSS WNL ON RA. COMPLAINED OF NOT BEING ABLE TO SLEEP ATIVAN X1 AND DILAUDID X 3 GIVEN. PATIENT ALSO COMPLAINED OF RIGHT FOOT PAIN TO TOP OF FOOT PLEASANT AND COOPERATIVE WITH CARES.
[2017-04-05 05:28] LABS: BASOPHIL % 0.6 %; EOSINOPHIL # 0.2 K/uL (0.0-0.5); EOSINOPHIL % 3.8 %; HEMATOCRIT 25.4 % (37.0-53.0); HEMOGLOBIN 8.4 g/dL (11.0-16.0); IMMATURE GRANULOCYTE % 0.9 %; LYMPHOCYTE # 1.1 K/uL (0.8-4.0); LYMPHOCYTE % 22.6 %; MCH 29.9 pg (27.0-34.0); MCHC 33.1 gm/dL (32.0-36.5); MCV 90.4 fl (83.0-98.0); MONOCYTE # 0.8 K/uL (0.0-1.0); MONOCYTE % 16.2 %; MPV 9.5 fl (9.4-12.4); NEUTROPHIL # (ANC) 2.6 K/uL (1.4-9.0); NEUTROPHIL % 55.9 %; NRBC % 0 /100WBC (0-0.00); PLATELET COUNT 226 K/uL (150-450); RBC 2.81 M/uL (3.50-5.50); RDW-CV 12.7 % (11.9-14.6); WBC 4.7 K/uL (4.0-11.0)
--- NOTE | 2017-04-05 16:09 | NUR ---
Reviewed chart, talked with Lynette Mullins APRN for hospitalist service, and talked with pt and again this afternoon with patient, sister Jacki and niece Inocencia. They do not see need for nurse to see pt right now. Gave them options of calling [place] DME provider and getting DME through [place] Medicaid that way for trach supplies, vs us giving them a script and getting it through DME supplier here or ordering online to try and get less expensive supplies but they will pay for that privately. Gave them Meaghan/Shayna with [facility] card and let them know [facility] is working on helping figure out the transition to [place] Medicaid. Pt worried he won't get treatment here until gets Medicaid on board, told them to check with Dr Morrow/Junior/Omid to navigate that, as they will need medical records, etc to determine tx. Sister Jacki said she will call them and discuss and that they are in process of setting up appt and getting records. She discusses with pt that he will have to decide if staying here or going back to [place], wants him here. Pt worried about when he can start treatment again. Denies other questions for me right now, their plan is for patient to go home with Jacki on discharge. Will follow.
--- NOTE | 2017-04-05 16:37 | NUR ---
Significant Event: Patient alert and oriented x3. VSS on RA. Up independently. R) chest port and trach- patient does own trach cares. Peg tube to abdomen. Temp of 99.1 this AM then back down to 98.6 in afternoon. Patient C/O pain 7/10 throughout day with dilaudid given. Patient has had tube feedings x2 and did not order breakfast or lunch. Patient did not C/O foot pain during this shift. New order for Imodium PRN for diarrhea- given x1. Patient has not had BM today. Patient has beem a bit sad today- mostly in AM. Cooperative with cares.
--- NOTE | 2017-04-06 04:12 | NUR ---
Significant Event:pt is a/o x3. has trach and peg tube. tube feedings x6 per day. 240ml of tube feed w/ 60ml prior and 60ml after for total of 120 flush. pt is able to do this himself. pt had po dilaudid x2 last @ 0339 for c/o pain to r ear. port to r chest was reaccessed at start of shift w/ 1' power port needle, when reaccessing need to use 3/4 needle. good blood return- sl with iv abx. vss afebrile. pt needs sensicare to bottom at least 4 x per day, pt does this himself when he uses the restroom. Follow up:pain management
--- NOTE | 2017-04-06 12:25 | NUR ---
MESSAGE LEFT ON VOICE MAIL FROM HUE DAVE APRN RE: A LESS EXPENSIVE TUBE FEEDING PRODUCT. VISITED W/PT RE: TUBE FEEDING PRODUCT. PT WOULD LIKE TO STAY ON JEVITY 1.5 BECAUSE HE KNOWS THAT IT WORKS. AFTER DISCUSSING WITH PT THAT WE WOULD FIND A FORMULA THAT STILL MET HIS NEEDS, HE WAS AGREEABLE TO THAT IF NEED BE. PT REPORTS THAT HE HAS A LEAST 5 DAYS OF JEVITY 1.5 AT HOME. REFERAL MADE TO FREDRICK AGUAYO, NUTRITION SUPPORT DIETITIAN AT HOME INFUSION. АНДРЕЙ BONILLA WAS NOTIFIED WELL THAT A REFERAL WAS MADE TO HOME INF[facility] TO HELP PT WITH HIS TUBE FEEDING FORMULA, ETC. DISCUSSED THIS PLAN WITH PT ALSO; HE WAS AGREEABLE. RECOMMEND CONTINUING WITH 6 CANS OF JEVITY 1.5 AT THIS TIME; PER PT REQUEST. ABOVE INFORMATION WAS DISCUSSED WITH JESSICA RUSSELL.
--- NOTE | 2017-04-06 12:53 | NUR ---
Talked with SOHAN Jeronimo about dietary consult for tube feeding product. Then received call from [facility] Home Infusion Pharmacist and the Jevity 1.5 that pt on now is one of the least expensive tube feeding products, Osmolite about .09 cents cheaper a can but if tolerating Jevity not worth changing for that. Talked with LIZETTE Moyer about that and trach supplies and antibx. Discussed Medicaid process and [facility] helping with that. Pt may dc home today.
[2017-04-06] MEDS ORDERED: MAG119MX PO (17:08)
[2017-04-06] MEDS ORDERED: DIFLUCAN200 MG PO (17:08)
[2017-04-06] MEDS ORDERED: NEOSPORIN1 PKT TOP (17:11)
[2017-04-06] MEDS ORDERED: LEVAQUIN 750 M750 MG PO (17:13)
[2017-04-06] MEDS ORDERED: XANAX0.5 MG PO (17:15)
--- NOTE | 2017-04-06 18:04 | NUR ---
DISCHARGE: Pt. was explained discharge instructions, educated on trach cares, trach cleaning, pneumonia treatment, and new medications. Verbalized understanding of teaching, no questions or concerns. Port deaccessed by primary nurse. Left with all belongings and prescriptions. Taken to front door by aide and driven home by friend. Pt. will call tomorrow AM to schedule [facility] appoinments since [facility] system was down this afternoon.
--- NOTE | 2017-05-04 09:22 | NUR ---
Met with patient at [facility]. Addressed needs. Will follow through treatment.
[2017-06-19] MEDS ORDERED: MS CONTIN15 MG PO (07:29)
== END 2017-04-06 18:20 | disposition disaster alternative care site (69) | DRG 163 ==
LOC: GMED 11:36 → GMSU 15:25
PROVIDERS: Emergency Medicine; Internal Medicine; Internal Medicine Critical Care Medicine; ADMIT Internal Medicine
PROC: BB13ZZZ Fluoroscopy of Left Lung (ICD-10-PCS; principal; 2017-04-03)
PROC: 0BBG8ZX Excision of Left Upper Lung Lobe, Via Natural or Artificial Opening Endoscopic, Diagnostic (ICD-10-PCS; principal; 2017-04-03)
PROC: 0B9G8ZX Drainage of Left Upper Lung Lobe, Via Natural or Artificial Opening Endoscopic, Diagnostic (ICD-10-PCS; principal; 2017-04-03)
PROC: 0B21XFZ Change Tracheostomy Device in Trachea, External Approach (ICD-10-PCS; principal; 2017-04-03)
PROC: 0W3Q7ZZ Control Bleeding in Respiratory Tract, Via Natural or Artificial Opening (ICD-10-PCS; principal; 2017-04-03)
DX: J15.1 Pneumonia due to Pseudomonas (principal); E43 Unspecified severe protein-calorie malnutrition; B37.1 Pulmonary candidiasis; C32.1 Malignant neoplasm of supraglottis; R04.2 Hemoptysis; Z93.0 Tracheostomy status; C10.9 Malignant neoplasm of oropharynx, unspecified; R13.10 Dysphagia, unspecified; J15.6 Pneumonia due to other Gram-negative bacteria; G89.3 Neoplasm related pain (acute) (chronic); J98.4 Other disorders of lung; E11.9 Type 2 diabetes mellitus without complications; E86.0 Dehydration; Z93.1 Gastrostomy status; Z92.21 Personal history of antineoplastic chemotherapy; Z87.891 Personal history of nicotine dependence; J15.0 Pneumonia due to Klebsiella pneumoniae; B35.6 Tinea cruris; K12.30 Oral mucositis (ulcerative), unspecified; F41.9 Anxiety disorder, unspecified; R53.1 Weakness; R19.7 Diarrhea, unspecified; Z85.818 Personal history of malignant neoplasm of other sites of lip, oral cavity, and pharynx; I25.10 Atherosclerotic heart disease of native coronary artery without angina pectoris; I25.84 Coronary atherosclerosis due to calcified coronary lesion; M17.11 Unilateral primary osteoarthritis, right knee; M19.022 Primary osteoarthritis, left elbow; M19.021 Primary osteoarthritis, right elbow; Z98.1 Arthrodesis status; Z68.21 Body mass index [BMI] 21.0-21.9, adult; K21.9 Gastro-esophageal reflux disease without esophagitis
CPT/HCPCS: J0713; J1170; J1642; J1644; J1650; J2185; J2270; J2405; J2543; J3010; J3301; J3370; J7030; J7040; J7050; Q9967

== ENCOUNTER → 2017-04-20 | Outpatient (CLI) | payer MEDICAID ==
[~2017-04-20] MED LIST: AMBIEN5 MG PO; AMOX TR-K CLV1 EAC3 PO; CARAFATE1 GM PO; COLACE100 MG PO; COMPAZINE10 MG PO; DECADRON4 MG PO; DIFLUCAN200 MG PO; DILAUDID 4MG4 MG PO; DULCOLAX10 MG R; DULCOLAX5 MG PO; FLORASTOR250 MG PO; IMODIUM2 MG PO; LEVAQUIN 750 M750 MG PO; LEVAQUIN ORA25 MG/ML FT; MAG119MX PO; MS CONTIN15 MG PO; NEOSPORIN1 PKT TOP; ONDANSETRON ODT8 MG PO; OXYCONTIN EXTEN10 MG PO; PROTONIX40 MG PO; REGLAN10 MG PO; SENOKOT SYRUP240 ML FT; TYLENOL ARTHRI650 MG PO; XANAX0.5 MG PO; ZOFRAN ODT4 MG PO; ZOVIRAX400 MG PO
== END ==
LOC: LGSMG 16:18
DX: R07.9 Chest pain, unspecified (principal); J18.1 Lobar pneumonia, unspecified organism

== ENCOUNTER 2017-05-08 18:16 | Inpatient (IN) | payer MEDICAID ==
[~2017-05-08] VITALS: Ht 172.7 cm; Wt 66.9 kg
--- NOTE | ~2017-05-08 | ER ---
PATIENT'S NAME: JIMMIE TORO [facility] AGE: 61 Y [address] ROOM: [address] [place], [place] [address] LOCATION: [facility] ADMIT DATE: 05/08/2017 ER/Outpatient Report DISCHARGE DATE: FAMILY PHYSICIAN: JAYDEN KEY MD ATTENDING PHYSICIAN: GILES ESTEVEZ V Admission date and time documented on the medical record. I saw the patient at 1835 hours. CHIEF COMPLAINT: Fever with possible neutropenic fever. The patient has a history of head and neck cancer, undergoing chemotherapy. HISTORY OF PRESENT ILLNESS: The patient is a 61-year-old male, who developed a temperature of 101.7 at 1700 hours this afternoon. He did have some shaking chills, rigors accompanying the fever, generalized weakness. Denies any chest pain. He has had some increased shortness of breath. He has had a cough. He had has increase in his suctioning of his tracheostomy. The material he is getting up is discolored. He does have some epigastric abdominal pain, nonradiating. No nausea, vomiting, diarrhea. No urinary frequency, urgency, or dysuria. He has had some bilateral leg swelling. He has problems with hiccups and has constant indigestion, with any intake of fluid or solid he has epigastric pain. He does have head and neck cancer. He is on chemotherapy. He had chemotherapy May 01 to May 06. Since the , he has had low-grade fevers that spike today. He does have a trach and does have a port. No headache, eyes, ears, nose pain. No neck or spine pain. Generalized weakness, a little bit of dizziness. No syncope or near syncope. No fall or trauma. No joint redness or pain. Does have some lower leg swelling. No skin eruptions or rash. Does have tlk-rsmwhep-uglftsryo diabetes mellitus type 2. No neural changes or psych issues. HOME MEDICATIONS: See attached medication list. ALLERGIES: NONE. SOCIAL HISTORY: Nonsmoker, occasional intake of alcohol. SIGNIFICANT PAST MEDICAL HISTORY: Head neck cancer, remote tobacco abuse, vpn-tgizmtr-cwgjmhovu diabetes mellitus type 2, hard of hearing, reactive airway disease, hypertension, degenerative osteoarthritis, atherosclerotic ischemic heart disease with PATIENT'S NAME: JIMMIE TORO [facility] AGE: 61 Y [address] ROOM: [address] [address] LOCATION: [facility] ADMIT DATE: 05/08/2017 ER/Outpatient Report DISCHARGE DATE: FAMILY PHYSICIAN: JAYDEN KEY MD ATTENDING PHYSICIAN: GILES ESTEVEZ V coronary artery disease, ruptured spleen. PAST SURGICAL HISTORY: Bronchoscopy, G-tube placement, port placement, chemotherapy, radiation therapy, tracheostomy, bilateral inguinal herniorrhaphy, appendectomy, left elbow surgery, right knee surgery, exploratory laparotomy or ruptured spleen, cervical neck surgery, blood transfusion. REVIEW OF SYSTEMS: All systems reviewed by me are negative with the exception of those discussed in the history of present illness. PHYSICAL EXAMINATION: VITAL SIGNS: Temperature 98.7 tympanic, pulse 94, respirations 20, blood pressure 98/61, O2 saturation on room air is 94%. HEENT: Head: Normocephalic. No abrasion, contusion, laceration, swelling of scalp or face. Eyes: Extraocular motions are intact. PERRL. Sclerae and conjunctivae clear, nonicteric. Ears: Clear TMs bilaterally. Nose: Clear. Throat: Clear. Mucous membranes moist. Teeth/Jaw: Intact. NECK: No nuchal rigidity. No thyromegaly or cervical adenopathy. No tenderness. Tracheostomy in place. SPINE: Negative. LUNGS: Basilar rhonchi and rales. Decreased breath sounds, coarse cough. HEART: Regular. Pulses are palpable. The patient is mildly tachypneic. ABDOMEN: Soft, some tenderness in epigastric area. G-tube is in place. Bowel tones present. No organomegaly or abnormal mass palpable. No CVA tenderness. EXTREMITIES: Does have some peripheral edema, nonpitting, no cyanosis, no deformity. NEUROVASCULAR: Intact. SKIN: Clear. No skin eruptions or rash. LABORATORY DATA AND X-RAYS: Chest x-ray showed no acute infiltrate. We will review x-ray with the radiologist. White count was 800. Differential 16 segs, 9 bands, 56 lymphocytes, 18 monos, 1 metamyelocyte. Hemoglobin was 8.8; hematocrit 24.2; platelet count was 155,000. Sed rate is elevated 110, pro-time is 12.7, and INR 1.21. Urine shows 2 to 5 whites, negative reds, 0 to 2 epithelial cells, negative bacteria, 0 to 2 hyaline casts, 0 to 2 granular casts, negative nitrites on dipstick. CMS was normal except for low sodium 129, low chloride 95, elevated glucose 125, elevated BUN of 29. Amylase and lipase were normal. CRP was 11.3, proBNP was 78. Venous pH was 7.49, lactate was 0.8, procalcitonin was 0.07. EMERGENCY DEPARTMENT COURSE: PATIENT'S NAME: JIMMIE TORO [facility] AGE: 61 Y [address] ROOM: [address] [address] LOCATION: [facility] ADMIT DATE: 05/08/2017 ER/Outpatient Report DISCHARGE DATE: FAMILY PHYSICIAN: JAYDEN KEY MD ATTENDING PHYSICIAN: GILES ESTEVEZ I did start the patient on IV normal saline fluids. Gave him morphine IV for pain and Protonix 40 mg IV for reflux. IMPRESSION: 1. Neutropenic fever. Etiology uncertain but most likely respiratory, awaiting blood cultures. The patient's white count was 800 with bandemia of 9% bands. He had an elevated sed rate of 110, elevated CRP of 11.3. 2. History of head and neck cancer, presently on chemotherapy. The patient does have a functioning trach. Does take some orals orally but also take some per the G-tube. 3. Goa-fmqvkjd-ydpkqkymz diabetes mellitus type 2. 4. Remote tobacco abuse. 5. Anemia of chronic disease with a hemoglobin 8.8, hematocrit 24.2. 6. Mild hyponatremia with a sodium of 129. PLAN: Discussed the patient with Dr. Estevez, hospitalist. Dr. Estevez is coming to the emergency room to evaluate the patient. Admit the patient to the hospital for further treatment for his neutropenic fever. Awaiting blood culture results. Discussion ensued with the patient concerning my findings and recommendations, he understands. Accumulated critical care time, 30 minutes. MD MARVIN WELLS/modl /[id number] d: 05/09/17 0133 t: 05/09/17 0430, OUTPATIENT REPORT
--- NOTE | ~2017-05-08 | DS ---
PATIENT'S NAME: JIMMIE TORO [facility] AGE: 61 Y [address] ROOM: [place] [address] LOC[place]: [facility] ADMIT DATE: 05/08/2017 Discharge Summary DISCHARGE DATE: 05/11/2017 FAMILY PHYSICIAN: Tha Lynn MD ATTENDING PHYSICIAN: Artur Palma V PRINCIPAL DIAGNOSES: 1. Neutropenic fever. 2. Pancytopenia. 3. Laryngeal carcinoma, currently undergoing chemo. 4. Esophagitis. 5. Hyponatremia. 6. Moderate protein calorie malnutrition. HOSPITAL COURSE: Please refer to the admission H and P for detailed history on initial presentation. This is a 61-year-old male with known history of laryngeal cancer, undergoing chemotherapy. He presented with persistent fever and subsequent complaints of odynophagia. On initial evaluation, the patient as noted to be neutropenic with ANC 200. The patient was subsequently admitted for further workup and evaluation. Chest x-ray, blood, urine cultures, and studies overall did not show anti-bacterial trough. The patient was started on broad-spectrum antibiotics and during this first stay, he started to continue spiked fevers, however, in the last 48 hours, the patient had been afebrile and antibiotics had been deescalated. The patient's white count today have significantly improved and is currently not neutropenic. On the day of discharge, WBC is 6.2, hemoglobin 7.3, hematocrit 20.7, and ANC 45,000. At this point, I will discharge the patient on p.o. Levaquin for 7 more days and he will follow up with his oncologist as soon as possible. PHYSICAL EXAMINATION: GENERAL: The patient is awake, alert, and oriented x3, in no acute distress. HEART: S1, S2. Regular rate and rhythm. ABDOMEN: Soft, nontender, and nondistended. CHEST: Clear to auscultation bilaterally. EXTREMITIES: Lower extremities without edema. No rash, lesions, or erythema noted. MEDICATIONS: Per DEC. DISPOSITION: Home. Follow up with Oncology next week. Less than 30 minutes were spent in discharge planning and facilitating. PATIENT'S NAME: JIMMIE TORO [facility] AGE: 61 Y [address] ROOM: [place] [address] LOCATION: [facility] ADMIT DATE: 05/08/2017 Discharge Summary DISCHARGE DATE: 05/11/2017 FAMILY PHYSICIAN: Tha Lynn MD ATTENDING PHYSICIAN: Artur Palma V BARKOT MD DELMI SEBASTIAN/grzegorz /[id number] d: 05/12/17 0308 t: 05/30/17 1522, DISCHARGE SUMMARY
--- NOTE | ~2017-05-08 | HP ---
PATIENT'S NAME: JIMMIE TORO [facility] AGE: 61 Y [address] ROOM: [place] [address] LOCATION: [facility] ADMIT DATE: 05/08/2017 History & Physical DISCHARGE DATE: FAMILY PHYSICIAN: JAYDEN KEY MD ATTENDING PHYSICIAN: GILES ESTEVEZ V DATE OF SERVICE: CHIEF COMPLAINT: Fevers. HISTORY OF PRESENT ILLNESS: The patient is a 61-year-old male, with past medical history of active laryngeal cancer, currently undergoing chemotherapy, last session completed 8 days ago, followed by a Neulasta injection. The patient has been having low-grade fevers since completing his chemo several days ago. Today, the fever got up to be 101.5. He also developed odynophagia as well as epigastric sharp pain with swallowing all the food. The patient also has a supplemental PEG feeding tube which does not produce his abdominal pain. He also reports subjective feeling of regurgitating his tube feeds and increase secretions from his tracheostomy. In the ER, he has had a temperature 98.7 and had an absolute neutrophil count of 200. REVIEW OF SYSTEMS: All systems have been reviewed and are negative aside from pertinent positives mentioned above. PAST MEDICAL HISTORY: 1. 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 2. Opioid dependency. 3. Recent hospitalization for cavitary pneumonia with multiple gram-negative organisms. SOCIAL HISTORY: Significant for approximately 40 to 60 pack years of tobacco use, the patient having quit in approximately 8 months ago. No other toxic habits. FAMILY HISTORY: Reviewed and is noncontributory due to known underlying etiology for his presentation. PATIENT'S NAME: JIMMIE TORO [facility] AGE: 61 Y [address] ROOM: [place] [address] LOCATION: [facility] ADMIT DATE: 05/08/2017 History & Physical DISCHARGE DATE: FAMILY PHYSICIAN: JAYDEN KEY MD ATTENDING PHYSICIAN: GILES ESTEVEZ V CURRENT MEDICATIONS: Include, 1. OxyContin. 2. Dilaudid. PHYSICAL EXAMINATION: VITAL SIGNS: Blood pressure 99/44, heart rate is in the 80s, temperature 97.8, saturating 94% on room air, respirations 16. GENERAL: Appears as a chronically ill, middle-aged male, nontoxic, in no acute distress. NEUROLOGICAL: Nonfocal. EYE: Shows pupils are equal and reactive to light. LYMPHATIC: Shows cervical lymphadenopathy. ENDOCRINE: Cannot be done due to presence of a tracheostomy. LUNG: Significant for crackles at left base more than right base with diminished breath sounds throughout. HEART: Reveals regular rate and rhythm without appreciable murmurs, gallops, or rubs. GI: Shows a PEG tube in place and no tenderness or rebound. Normoactive bowel sounds. : No costovertebral angle tenderness. VASCULAR: 2+ pedal pulses. MUSCULOSKELETAL: No muscle or joint abnormalities. PSYCHIATRIC: Appropriate mood, cognition, and affect. SKIN: Warm and dry. LABORATORY DATA AND X-RAYS: Review of the studies in the ER significant for ABG showing pH of 7.49, PO2 of 75, pCO2 of 42. Sodium of 129, creatinine of 1.1, white count 8.8, hemoglobin is 8.8, platelets of 155, INR 1.2, sed rate is 110. Procalcitonin is 0.07. Chest x-ray appears grossly unremarkable. ASSESSMENT AND PLAN: This is a 61-year-old male, who will be admitted with, 1. Febrile neutropenia; while at this point, the patient appears nontoxic, given his recent history of infection, we will be aggressive in treating him for a broad spectrum of organisms with cefepime and vancomycin. We will follow up his cultures drawn in the ER. We will monitor him for any development of visible sepsis. 2. Abdominal discomfort. We will get a CAT scan of abdomen and pelvis to rule out possible intraabdominal focus as an underlying etiology for his febrile neutropenia. 3. Odynophagia. The patient does have a history of oral thrush and concern about the possibility of fungal esophagitis. We will request a GI consultation in the morning and empirically start him on IV Diflucan. PATIENT'S NAME: JIMMIE TORO [facility] AGE: 61 Y [address] ROOM: [address] [address] LOCATION: [facility] ADMIT DATE: 05/08/2017 History & Physical DISCHARGE DATE: FAMILY PHYSICIAN: JAYDEN KEY MD ATTENDING PHYSICIAN: GILES ESTEVEZ V 4. Neutropenia. The patient only yesterday completed a Neulasta injection. We will put him on neutropenia precautions and follow his white count with differential. We will consider an Oncology consult for possible Neupogen though at this point, we will give Neulasta some more time to work. 5. Deep vein thrombosis prophylaxis will be pharmacologic given his active malignancy. 6. Additional management will depend on clinical course. Time dedicated to this consultation is 35 minutes. MD MICHAEL LEIJA/grzegorz /[id number] D: [id number] T: [id number] HISTORY & PHYSICAL
--- NOTE | ~2017-05-08 | CON ---
PATIENT'S NAME: JIMMIE TORO [facility] AGE: 61 Y [address] ROOM: [place] [address] LOCATION: [facility] ADMIT DATE: 05/08/2017 Consultation DISCHARGE DATE: FAMILY PHYSICIAN: JAYDEN KEY MD ATTENDING PHYSICIAN: GILES ESTEVEZ V DATE OF CONSULTATION: 05/09/2017 REASON FOR CONSULTATION: Mid-epigastric discomfort and reflux. HISTORY OF PRESENT ILLNESS: This is a very pleasant 61-year-old gentleman with past medical history of active laryngeal cancer, currently undergoing chemotherapy with his last session completed approximately 9 days ago. The patient over the past few days has developed a low-grade fever, status post completion of his last chemotherapy treatment. He also at this point, has developed odynophagia as well as sharp mid epigastric discomfort with swallowing of the foods. In discussion with the patient, it appears the patient had a PEG placement completed in [place] in November 2016. The patient states that he uses supplemental feeding approximately 6 times per day. With tube feedings, he does complain of increased secretions as well as burning in his esophagus. He denies any complaints of discomfort with food though he does state that he has not eaten much orally. The pain began on Monday in his mid epigastric area that was sharp and burning. CT of the abdomen and pelvis was completed on admission that was essentially negative. The patient denies any acute chest pain or chest pressure. He does have a tracheostomy and also has noticed increased secretions. PAST MEDICAL HISTORY: Laryngeal cancer with local extension and tracheostomy currently on chemotherapy, opiate dependence, recent hospitalization for cavitary pneumonia with multiple gram-negative organisms. SOCIAL HISTORY: The patient has a history of tobacco use, quit approximately 8 months ago. He denies any alcohol or illicit drug use. FAMILY HISTORY: He denies any known gastrointestinal diseases or cancers. ALLERGIES: NO KNOWN MEDICATION ALLERGIES. CURRENT MEDICATIONS: PATIENT'S NAME: JIMMIE TORO [facility] AGE: 61 Y [address] ROOM: [address] [address] LOCATION: [facility] ADMIT DATE: 05/08/2017 Consultation DISCHARGE DATE: FAMILY PHYSICIAN: JAYDEN KEY MD ATTENDING PHYSICIAN: GILES ESTEVEZ V Please refer to the medication administration record. REVIEW OF SYSTEMS: All-point review of systems was completed. All were negative except for those identified in the History of Present Illness. PHYSICAL EXAMINATION: GENERAL: A very pleasant 61-year-old gentleman who appears to be in no acute distress. VITAL SIGNS: Temperature 100.2, pulse of 102, respirations of 22, blood pressure 129/58, and oxygen saturation is 96% on room air. SKIN: [place], warm, and dry. No jaundice. HEENT: Head is normocephalic and atraumatic. Pupils are equal, round, and reactive to light. Sclerae are clear. Nonicteric. Oral mucosa is pink and moist. No thyromegaly. NECK: Soft and supple. CARDIOVASCULAR: Regular. Normal S1 and S2. RESPIRATORY: Respirations even and unlabored. LUNGS: Clear to auscultation. ABDOMEN: Soft, round, mildly tender to the left upper quadrant as well as the midepigastric area. PEG site noted. Bowel sounds positive. MUSCULOSKELETAL: No muscle weakness or atrophy. EXTREMITIES: No clubbing, cyanosis, or edema. NEUROLOGIC: Grossly nonfocal. LABORATORY DATA AND DIAGNOSTIC DATA: Laboratory obtained today showed a white blood cell count is 0.6, hemoglobin of 7.5, hematocrit of 20.8, and platelets of 141. Chemistry panel includes a glucose of 142, BUN of 23, creatinine 0.8, sodium 130, potassium of 4.2, chloride of 97, and CO2 of 26. ASSESSMENT AND PLAN: Again, this is a very pleasant 61-year-old gentleman with past medical history significant for laryngeal cancer, currently undergoing chemotherapy. The patient did have a PEG tube placed for supplemental nutrition. The patient recently has been complaining of significant odynophagia as well as mid- epigastric discomfort with tube feedings. The patient denies any known history of upper endoscopy minus for PEG tube placement per his recollection. The patient likely will need an upper endoscopy for further evaluation ruling out any opportunistic infection though this will be discussed with the medical team as the patient continues having febrile neutropenia. Further recommendations to be given after possible upper endoscopy and discussion with medical team. PATIENT'S NAME: JIMMIE TORO [facility] AGE: 61 Y [address] ROOM: [place] [address] LOCATION: [facility] ADMIT DATE: 05/08/2017 Consultation DISCHARGE DATE: FAMILY PHYSICIAN: JAYDEN KEY MD ATTENDING PHYSICIAN: GILES ESTEVEZ V LUANA ENRIQUE APRN FOR OFELIA CARDOSO MD MMF/modl /[id number] d: 05/09/17 1450 t: 05/12/17 1705, CONSULTATION REPORT
--- NOTE | ~2017-05-08 | OR ---
PATIENT'S NAME: JIMMIE TORO [facility] AGE: 61 Y [address] ROOM: [address] [address] LOCATION: [facility] [place] ADMIT DATE: 05/08/2017 OR/Procedure Report DISCHARGE DATE: FAMILY PHYSICIAN: JAYDEN KEY MD ATTENDING PHYSICIAN: GILES ESTEVEZ V SURGEON: Ofelia Cardoso MD EMAIL MARKETING SPECIALIST: DATE OF PROCEDURE: 05/10/2017 ADDENDUM: Please refer to the procedure note from [facility]. In addition to this, note was also made of PEG tube. This was a replacement tube with the balloon inflated. This does appear to be in a satisfactory position. OFELIA CARDOSO MD AAN/modl /[id number] d: 05/10/172311 t: 05/12/17 1702, OPERATIVE SUMMARY
[~2017-05-08 18:16] MED LIST changes: -AMBIEN5 MG PO; -CARAFATE1 GM PO; -COLACE100 MG PO; -DULCOLAX10 MG R; -FLORASTOR250 MG PO; -IMODIUM2 MG PO; -LEVAQUIN ORA25 MG/ML FT; -MS CONTIN15 MG PO; -REGLAN10 MG PO; -SENOKOT SYRUP240 ML FT; -TYLENOL ARTHRI650 MG PO; -ZOFRAN ODT4 MG PO; -ZOVIRAX400 MG PO
[2017-05-08 19:00] LABS: LACTATE 0.8 mEq/L (0.50-1.60); PCO2 42 mmHg (35-45); PO2 75 mmHg (80-90)
[2017-05-08 19:01] LABS: HEMOGLOBIN 8.8 g/dL (11.0-16.0); MCH 30.7 pg (27.0-34.0); MCV 84.3 fl (83.0-98.0); MPV 10.1 fl (9.4-12.4); RBC 2.87 M/uL (3.50-5.50); RDW-CV 13.7 % (11.9-14.6)
[2017-05-08 19:19] LABS: HEMATOCRIT 24.2 % (37.0-53.0); MCHC 36.4 gm/dL (32.0-36.5); PLATELET COUNT 155 K/uL (150-450); WBC 0.8 K/uL (4.0-11.0)
[2017-05-08 19:24] LABS: ALBUMIN 3.2 gm/dL (3.5-5.0); ALK PHOS 69 IU/L (33-138); ALT 15 IU/L (12-78); ANION GAP 11.2 (10.0-19.0); AST 12 IU/L (10-40); BLOOD UREA NITROGEN 29 mg/dL (6-24); CALCIUM 8.7 mg/dL (8.5-10.5); CHLORIDE 95 mMol/L (96-110); CO2 27 mMol/L (22-32); CREATININE 1.1 mg/dL (0.6-1.3); ESTIMATED GFR (MDRD EQUATION) > 60; POTASSIUM 4.2 mMol/L (3.7-5.1); SODIUM 129 mMol/L (135-145); TOTAL PROTEIN 7.2 g/dL (6.0-8.4)
[2017-05-08 19:25] LABS: INR - (THERAPEUTIC) 1.21 (0.92-1.07); PROTIME 12.7 SECONDS (9.8-11.4); TOTAL BILIRUBIN 0.9 mg/dL (0.0-1.5)
[2017-05-08 20:42] LABS: BILIRUBIN URINE NEGATIVE (NEGATIVE); BLOOD URINE 10 /UL (NEGATIVE); COLOR URINE YELLOW (YELLOW); GLUCOSE URINE 100 mg/dL (NEGATIVE); KETONE URINE NEGATIVE (NEGATIVE); LEUKOCYTES URINE 25 /UL (NEGATIVE); NITRITE URINE NEGATIVE (NEGATIVE); PROTEIN URINE 100 mg/dL (NEGATIVE); TURBIDITY URINE CLEAR (CLEAR); UROBILINOGEN URINE NORMAL (NORMAL)
[2017-05-08 20:53] LABS: RBC URINE NEGATIVE #/HPF (NEGATIVE)
[2017-05-08 20:54] LABS: BACTERIA URINE NEGATIVE (NEGATIVE); EPITHELIAL URINE 0-2 #/HPF (NEGATIVE); GRANULAR CASTS URINE 0-2 #/LPF (NEGATIVE)
[2017-05-08 20:55] LABS: HYALINE CAST URINE 0-2 #/LPF (NEGATIVE)
[2017-05-08 20:56] LABS: ABSOLUTE NEUTROPHIL CT (ANC) 0.2 K/uL (1.4-9.0); BANDED NEUTROPHIL # 0.1 K/uL (0.0-0.1); BANDED NEUTROPHILS % 9 %; LYMPHOCYTE # 0.4 K/uL (0.8-4.0); LYMPHOCYTE % 56 %; MONOCYTE # 0.1 K/uL (0.0-1.0); SEGMENTED NEUTROPHIL # 0.1 K/uL (1.4-9.0); SEGMENTED NEUTROPHIL % 16 %
[2017-05-09] MEDS ORDERED: ZOVIRAX400 MG PO (00:08)
[2017-05-09 07:01] LABS: ANION GAP 11.2 (10.0-19.0); BLOOD UREA NITROGEN 23 mg/dL (6-24); CALCIUM 8.1 mg/dL (8.5-10.5); CHLORIDE 97 mMol/L (96-110); CO2 26 mMol/L (22-32); CREATININE 0.8 mg/dL (0.6-1.3); ESTIMATED GFR (MDRD EQUATION) > 60; MAGNESIUM 1.5 mg/dL (1.8-2.6); POTASSIUM 4.2 mMol/L (3.7-5.1); SODIUM 130 mMol/L (135-145)
[2017-05-09 07:03] LABS: PHOSPHORUS 1.9 mg/dL (2.5-4.9)
[2017-05-09 07:28] LABS: HEMATOCRIT 20.8 % (37.0-53.0); MCH 30.7 pg (27.0-34.0); MCHC 36.1 gm/dL (32.0-36.5); MCV 85.2 fl (83.0-98.0); MPV 10.7 fl (9.4-12.4); RBC 2.44 M/uL (3.50-5.50); RDW-CV 13.8 % (11.9-14.6)
[2017-05-09 07:32] LABS: HEMOGLOBIN 7.5 g/dL (11.0-16.0); WBC 0.6 K/uL (4.0-11.0)
--- NOTE | 2017-05-09 14:26 | NUR ---
SPOKE TO PATIENT REGARDING CM AND OUR ROLE. PATIENT LIVES WITH HIS SISTER WHO IS VERY SUPPORTIVE. PATIENT IS PLANNING ON RETURNING HOME ONCE HE IS READY FOR DISCHARGE. PATIENT VOICES CONCERNS THAT HE IS WANTING TO KNOW WHERE THEY ARE AT IN GETTING HIS MEDICAID TRANSFERED FROM [place]. I SPOKE TO HAMILTON WITH [employer] SHE REPORTS THAT THEY HAVE BEEN HELPING JIMMIE TO GET MEDICAID. AND THAT THE SYSTEM SHOWS THAT THE MEDICAID IS PENDING. I UPDATED PATIENT AND HIS SISTER ABOUT THIS. THEY DENIE ANY OTHER NEEDS AT THIS TIME.
--- NOTE | 2017-05-09 18:05 | NUR ---
Admission: ADMITTED FOR NEUTROPENIA, 0.8 WBC, AND FEVER OF 101.5 AT HOME. NO FEVERS SINCE. PORT ACCESSED ON R) CHEST IN ER. TRACH, PATIENT DOES OWN TRACH CARES. PEG TUBE, TO HAVE GEVITY 1.5 FEEDS X6 WHEN RESTARTED. ON CLEAR LIQUID DIET ON ADMISSION. CT SCAN DONE TO CHEST/ABDOMENT. DUE TO BURNING EPIGASTRIC PAIN. ALSO C/O PAIN TO R) EAR DUE TO TUMOR ON LYMPH NODES AT THAT AREA. DILUADID Q3H PO PRN FOR PAIN. MORPHINE IV PRN. OPXYCOTIN SCHEDULED. LEVAQUIN, VANCOMYCIN SCHEDULED PER SEPSIS PROTOCOL. UP WITH STANDBY ASSIST. VSS. A/OX3.
--- NOTE | 2017-05-09 20:23 | NUR ---
AAOx3. Cooperative with cares. Port to R)chest infusing w/GBR. PEG tube with bolus feedings of Jevity 1.5 240ml. Tolerated 2 full feedings today. Now too much epigastric fullness and burning. Waiting for pharmacy MOM order for this and constipation. Trach cares done by patient. Clear liquid diet, but has very little. Takes pills orally dry. Gave Dilaudid PO x2. NPO @0400 for EGD.
--- NOTE | 2017-05-10 02:36 | NUR ---
Significant Event: Pt alert and Oriented x3. Cooperative with cares. independent in room. Pt denied wanting to do any tube feedings this shift. pt felt ful and nauseated. no residule when checked. Mylanta given with no relief. Zofran given x1 with little relief. pt states" i feel constipated" supository give. no results yet. continue to monitor.will have EGD in am has been NPO since midnight. check list started and concents signed.IV antibiotics. Right chest port. pt does most all his own trach cares. VSS. RA. Follow up:
--- NOTE | 2017-05-10 08:41 | NUR ---
CONSULT TO ASSESS TF NOTED. PT NOT TOLERATING BOLUS FEEDINGS AT THIS TIME; C/O REFLUX AND FEELING FULL. DISCUSSED W/ PA AND OBTAINED ORDER TO CHANGE TF TO JEVITY 1.5 AT 60 ML/HR = 2160 KCALS, 90 GM PROTEIN, 1097 ML FREE H20 AFTER EGD COMPLETED. ALSO SUGGESTED THAT A PROMOTILITY AGENT BE CONSIDERED. WILL F/U IN 1-2 DAYS.
[2017-05-10 11:09] LABS: HEMATOCRIT 19.4 % (37.0-53.0); MCH 31.1 pg (27.0-34.0); MCHC 36.6 gm/dL (32.0-36.5); MCV 85.1 fl (83.0-98.0); PLATELET COUNT 141 K/uL (150-450); RBC 2.28 M/uL (3.50-5.50); RDW-CV 13.9 % (11.9-14.6)
[2017-05-10 11:11] LABS: WBC 1.4 K/uL (4.0-11.0)
[2017-05-10 11:12] LABS: HEMOGLOBIN 7.1 g/dL (11.0-16.0)
[2017-05-10 11:24] LABS: ALBUMIN 2.8 gm/dL (3.5-5.0); ANION GAP 12.3 (10.0-19.0); BLOOD UREA NITROGEN 18 mg/dL (6-24); CALCIUM 8.6 mg/dL (8.5-10.5); CHLORIDE 101 mMol/L (96-110); CO2 24 mMol/L (22-32); CREATININE 0.9 mg/dL (0.6-1.3); ESTIMATED GFR (MDRD EQUATION) > 60; MAGNESIUM 1.6 mg/dL (1.8-2.6); PHOSPHORUS 2.3 mg/dL (2.5-4.9); POTASSIUM 4.3 mMol/L (3.7-5.1); SODIUM 133 mMol/L (135-145)
[2017-05-10 11:50] LABS: ABSOLUTE NEUTROPHIL CT (ANC) 0.4 K/uL (1.4-9.0); BANDED NEUTROPHIL # 0.3 K/uL (0.0-0.1); BANDED NEUTROPHILS % 19 %; LYMPHOCYTE # 0.4 K/uL (0.8-4.0); LYMPHOCYTE % 32 %; MONOCYTE # 0.5 K/uL (0.0-1.0); SEGMENTED NEUTROPHIL # 0.1 K/uL (1.4-9.0); SEGMENTED NEUTROPHIL % 9 %
--- NOTE | 2017-05-10 15:56 | NUR ---
Patient is alert and oriented, hypotensive. Has a history of oral/tongue cancer, does his own trach cares, PEG tube. He is supposed to have tube feedings, was NPO this AM for an EGD, found esophagitis and took some biopsies. Does not want to do his tube feedings due to nausea and indigestion. Wants to try real food tonight, mechanical soft diet ordered. R) chest port. Has suppositories scheduled BID, will clarify to see if this needs to be PRN. Independent in the room.
--- NOTE | 2017-05-11 02:41 | NUR ---
Significant Event: pt alert and oriented x3. cooperative with cares. independent in room. I/O. denies wanting to do any tube feeds, ate some dinner PO. VSS. RA. does own trach cares. IV antibiotics. Right chest port GBR. denies any neausea this shift. complaints of pain controlled with PRN diladid. denies any SOB. Xanax given prior to bed per pt request. Follow up:
[2017-05-11 14:10] LABS: HEMATOCRIT 20.7 % (37.0-53.0); HEMOGLOBIN 7.3 g/dL (11.0-16.0); MCH 30.9 pg (27.0-34.0); MCHC 35.3 gm/dL (32.0-36.5); MCV 87.7 fl (83.0-98.0); RBC 2.36 M/uL (3.50-5.50); WBC 6.2 K/uL (4.0-11.0)
[2017-05-11 14:11] LABS: MPV 9.9 fl (9.4-12.4); PLATELET COUNT 186 K/uL (150-450); RDW-CV 15.5 % (11.9-14.6)
[2017-05-11 14:17] LABS: ALBUMIN 2.7 gm/dL (3.5-5.0); CALCIUM 8.8 mg/dL (8.5-10.5); CREATININE 0.9 mg/dL (0.6-1.3); MAGNESIUM 1.6 mg/dL (1.8-2.6); PHOSPHORUS 2.7 mg/dL (2.5-4.9)
[2017-05-11 14:58] LABS: ABSOLUTE NEUTROPHIL CT (ANC) 4.5 K/uL (1.4-9.0); BANDED NEUTROPHILS % 32 %; LYMPHOCYTE # 0.8 K/uL (0.8-4.0); LYMPHOCYTE % 13 %; MONOCYTE # 0.7 K/uL (0.0-1.0); SEGMENTED NEUTROPHIL # 2.5 K/uL (1.4-9.0); SEGMENTED NEUTROPHIL % 41 %
--- NOTE | 2017-05-11 17:08 | NUR ---
Patient is alert and oriented, hypotensive, on room air. Independent in room. Has oral/tongue cancer. PEG tube and trach. No feedings today, refused. Did have a few bites of a hamburger, even though that was not within his diet, and ate a whole bowl of cream of chicken soup. Orders have been received to discharge home.
--- NOTE | 2017-05-11 17:15 | NUR ---
A-NUTRITION F/U PT HAS REFUSED TF; EATING ORALLY ONLY VISITED W/PT TODAY AND HE REPORTS THAT HE IS GOING HOME TODAY. DISCUSSED HIS TF; HE STATES "I AM GOING TO HAVE TO DO THEM BECAUSE I AM NOT EATING ENOUGH." HE IS HOPING THAT THE NEW "DIGESTION" MEDICINE THEY PUT HIM ON WILL HELP. DISCUSSED CONTINUOUS FEEDINGS AGAIN; HE WANTS TO TRY BOLUS FEEDINGS FIRST WITH THE NEW MED. ALSO DISCUSSED THE OPTION OF NOCTURNAL FEEDINGS. HE WILL CONTACT YOANA FROM HOME [facility] REGARDING HOW TO GET A PUMP, IF NEEDED. (+)BM. WT STABLE LABS: NA 136, K+ 4.0,G SHAW 91, BUN 10, STUDENT COUNSELLOR 0.9, ALB 2.7 MEDS: DULCOLAX, PROTONIX, CARAFATE DIET RX: MECHANICAL SOFT. BITES-25% EST NUTR NEEDS: 4698-2993 KCALS AND 78-98 GM PROTEIN D-AT NUTRITION RISK W/INADEQUATE ORAL INTAKE R/T DIFF. SWALLOWING AND ALTERED GI FXN AEB PEG TUBE, C/O INDIGESTION AND HICCUPS. I-1)RECOMMEND RESTARTING BOLUS FEEDINGS; 6 CANS JEVITY 1.5 DAILY IF PT TOLERATES. IF PT DOES NOT TOLERATE, TRY NOCTURNAL OR BOLUS FEEDINGS VIA PUMP. 2)WILL REFER PT TO RD AT [facility] TO F/U WITH PT; PT AGREEABLE TO THIS. M/E-GOAL: PT WILL TOLERATE TF WITHOUT DIFFICULTY 1)F/U TF, GI, AND POC IN 4-5 DAYS 2)ASSIST NEEDED
[2017-05-11] MEDS ORDERED: CARAFATE1 GM PO (17:26)
[2017-05-11] MEDS ORDERED: AMBIEN5 MG PO (17:30)
[2017-05-11] MEDS ORDERED: LEVAQUIN 750 M750 MG PO (17:30)
--- NOTE | 2017-05-11 18:25 | NUR ---
DISCHARGE: Pt. was explained discharge instructions, educated on new medications, and educated on oncology infection prevention and neutropenia. Verbalized undestanding of teaching, no questions or concerns. Port deaccessed by primary nurse. Left with all belongings and prescriptions. Taken to front door by aide and driven home by friend.
[2017-06-19] MEDS ORDERED: MS CONTIN15 MG PO (07:29)
== END 2017-05-11 18:05 | disposition disaster alternative care site (69) | DRG 809 ==
LOC: GMED 18:16 → GMSU 22:12
PROVIDERS: Emergency Medicine; Physician Assistant; ADMIT Internal Medicine
PROC: 0DB68ZX Excision of Stomach, Via Natural or Artificial Opening Endoscopic, Diagnostic (ICD-10-PCS; principal; 2017-05-10)
PROC: 0DB58ZX Excision of Esophagus, Via Natural or Artificial Opening Endoscopic, Diagnostic (ICD-10-PCS; principal; 2017-05-10)
PROC: 0D20XUZ Change Feeding Device in Upper Intestinal Tract, External Approach (ICD-10-PCS; principal; 2017-05-10)
DX: D70.9 Neutropenia, unspecified (principal); E87.1 Hypo-osmolality and hyponatremia; E44.0 Moderate protein-calorie malnutrition; C32.9 Malignant neoplasm of larynx, unspecified; R50.81 Fever presenting with conditions classified elsewhere; K20.9 Esophagitis, unspecified; Z68.21 Body mass index [BMI] 21.0-21.9, adult
CPT/HCPCS: C9113; J0692; J1170; J1650; J1956; J2001; J2270; J2405; J3370; J7030; J7040; J7050

== ENCOUNTER 2017-06-18 13:24 | Emergency (ER) | payer MEDICAID ==
--- NOTE | ~2017-06-18 | ER ---
PATIENT'S NAME: JIMMIE HAMPTON [facility] AGE: 61 Y [address] ROOM: [place] [address] LOCATION: ED ADMIT DATE: 06/18/2017 ER/Outpatient Report DISCHARGE DATE: 06/18/2017 FAMILY PHYSICIAN: Physician, Unknown ATTENDING PHYSICIAN: Lane Molina CHIEF COMPLAINT: Feeding tube issue. HISTORY OF PRESENT ILLNESS: Mr. Hampton has a history of laryngeal cancer and is G-tube dependent. He has an 18-Andorran G-tube which fell out today. He recently moved from [place] back to the [facility]. He follows with [facility] for his cancer. He denies any pain associated with this particular issue. This incident happened about 20 minutes prior to arrival. PAST MEDICAL HISTORY: Documented on the record and reviewed by me. SOCIAL HISTORY: Documented on the record and reviewed by me. MEDICATIONS: Documented on the record and reviewed by me. ALLERGIES: DOCUMENTED ON THE RECORD AND REVIEWED BY ME. REVIEW OF SYSTEMS: All systems reviewed and negative except as noted in the HPI. PHYSICAL EXAMINATION: VITAL SIGNS: Are as follows, blood pressure is 127/75, pulse 80, respiratory rate is 20, temperature 98.6, SpO2 is 98% on room air. Pain is rated 0/10. GENERAL: Age-appropriate male, frail appearance, in no apparent pain or distress. NEUROLOGIC: Awake and alert. GCS 15. No focal deficits. No asymmetry. HEENT: Normocephalic, atraumatic. Eyes are PERRL. Oropharynx is clear. NECK: Supple with tracheostomy in place, functioning well. CHEST/HEART: Regular rate and rhythm. No murmurs. LUNGS: Clear to auscultation bilateral. ABDOMEN: Soft, nontender, and nondistended. No rebound or guarding. G-tube ostomy is noted with some scant succus. BACK: Normal to inspection. EXTREMITIES: Unremarkable. PATIENT'S NAME: JIMMIE HAMPTON [facility] AGE: 61 Y [address] ROOM: [place] [address] LOCATION: [facility] ADMIT DATE: 06/18/2017 ER/Outpatient Report DISCHARGE DATE: 06/18/2017 FAMILY PHYSICIAN: Physician, Unknown ATTENDING PHYSICIAN: Lane Molina SKIN: Clean, dry, and intact. LABORATORY DATA AND X-RAYS: Plain films of the abdomen were obtained with Gastrografin show no unusual contrast distribution confirming appropriate placement. IMPRESSION: G-tube complication. EMERGENCY DEPARTMENT COURSE: The patient was seen and evaluated. His tract was dilated with multiple Lew catheters from 14, 16, and up to an 18-Andorran. We do not have an 18-Andorran G- tube replacement. A 20-Andorran was attempted into and uncomfortable at this time. The 18-Andorran Lew remained in place. The balloon was inflated and he received a contrast study to confirm placement. I discussed the case with Dr. Welsh, GI surgeon. They will be seen in endoscopy tomorrow morning at 7 o'clock at the [facility], where they will further troubleshoot his tube placement. He can use medications and fluids, but is not to take any feeds through the Lew catheter as it is not designed for that. The patient expresses understanding. He was discharged in good condition. MD ELSA STAFFORD/grzegorz /[id number] d: 06/19/17 1451 t: 06/27/17 0633, OUTPATIENT REPORT
[~2017-06-18 13:24] MED LIST changes: +AMBIEN5 MG PO; +CARAFATE1 GM PO; +ZOVIRAX400 MG PO
[2017-06-19] MEDS ORDERED: MS CONTIN15 MG PO (07:29)
== END 2017-06-18 14:36 | disposition disaster alternative care site (69) ==
LOC: GMED 13:24
DX: K94.23 Gastrostomy malfunction (principal); Z87.891 Personal history of nicotine dependence; Z98.890 Other specified postprocedural states

== ENCOUNTER → 2017-06-19 | Day surgery (SDC) | payer MEDICAID ==
[~2017-06-19] VITALS: Ht 172.7 cm; Wt 63.9 kg
[~2017-06-19] MED LIST changes: +COLACE100 MG PO; +DULCOLAX10 MG R; +FLORASTOR250 MG PO; +IMODIUM2 MG PO; +LEVAQUIN ORA25 MG/ML FT; +MS CONTIN15 MG PO; +REGLAN10 MG PO; +SENOKOT SYRUP240 ML FT; +TYLENOL ARTHRI650 MG PO; +ZOFRAN ODT4 MG PO
== END | disposition disaster alternative care site (69) ==
LOC: GEND 07:00
PROC: 0DH63UZ Insertion of Feeding Device into Stomach, Percutaneous Approach (ICD-10-PCS; principal; 2017-06-19)
DX: Z46.59 Encounter for fitting and adjustment of other gastrointestinal appliance and device (principal); E11.9 Type 2 diabetes mellitus without complications; F41.9 Anxiety disorder, unspecified; F32.9 Major depressive disorder, single episode, unspecified; Z85.118 Personal history of other malignant neoplasm of bronchus and lung; Z98.890 Other specified postprocedural states
CPT/HCPCS: J1642; J2001; J7030

== ENCOUNTER 2017-06-22 15:36 | Emergency (ER) | payer MEDICAID ==
--- NOTE | ~2017-06-22 | ER ---
PATIENT'S NAME: JIMMIE HAMPTON [facility] AGE: 61 Y [address] ROOM: [place] [address] LOCATION: [facility] ADMIT DATE: 06/22/2017 ER/Outpatient Report DISCHARGE DATE: 06/22/2017 FAMILY PHYSICIAN: Physician, Unknown ATTENDING PHYSICIAN: Lane Molina CHIEF COMPLAINT: Vomiting and general malaise. I saw this patient in conjunction with Joaquina Edwards APRN. Please see her dictation for chief encounter and details. 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 He is receiving chemo and radiation currently. He follows primarily with Dr. Pacheco and Dr. Long for those treatments. He has no true primary care doctor, but is in the process of getting established with Dr. Lynn. He states that he just has not felt well for the last few days and his overall blood counts have been down trending. I evaluated the patient and found him to be afebrile, but with a slightly elevated temperature. He had no specific complaints. His cough is where it normally is and that is not different than it has typically been. He is otherwise doing well. He states that his infusions over the [facility] have been somewhat helpful, but he just does not feel well. After evaluation of the patient, he was found to be with leukopenia with an absolute neutrophil count of 1.4 thousand. CMS with hyponatremia and hypochloremia otherwise no significant abnormalities. Chest x-ray and urinalysis were unremarkable. Procalcitonin is not elevated. I did speak with Dr. Pacheco, the patient's oncologist, and the situation after I reflexively gave the patient cefepime and a liter bolus as well as some Zofran for his symptoms. As the patient does not technically have a fever. He can follow up tomorrow in the Cancer Center and they will further evaluate him at that time. He should return immediately to the emergency department, if he develops any further fever or other symptoms. All questions were answered and the patient was discharged in good condition. MD ELSA STAFFORD/modl /[id number] d: 06/23/17 1354 t: 06/27/17 0638, OUTPATIENT REPORT
--- NOTE | ~2017-06-22 | ER ---
PATIENT'S NAME: JIMMIE TORO [facility] AGE: 61 Y [address] ROOM: [place] [address] LOCATION: ED ADMIT DATE: 06/22/2017 ER/Outpatient Report DISCHARGE DATE: 06/22/2017 FAMILY PHYSICIAN: Physician, Unknown ATTENDING PHYSICIAN: Lane Molina Time of Arrival: 1536 hours Time of Exam: 1553 hours CHIEF COMPLAINT: Vomiting. HISTORY OF PRESENT ILLNESS: The patient states he has not been feeling well today. [facility], but platelets were too low. He did vomit x2 there. They encouraged him to come to the ER for further evaluation. He states he just has not felt right today. He has had some right ear pain, but that is not different from what he normally has. He has not really felt feverish. Denies having any abdominal pain. Denies having any chest pain. ALLERGIES: HE HAS NO KNOWN ALLERGIES. CURRENT MEDICATIONS: On his chart and were reviewed by me. PAST MEDICAL HISTORY: Laryngeal cancer, PEG tube, tracheostomy. PAST SURGICAL HISTORY: PEG tube insertion, back surgeries, laryngectomy, tracheostomy. SOCIAL HISTORY: He quit smoking 6 months ago. Denies use of drugs and alcohol. Dr. Pacheco is his primary care provider. He presents to the ER accompanied by his sister. REVIEW OF SYSTEMS: Negative other than those mentioned in the HPI. PHYSICAL EXAMINATION: VITAL SIGNS: He weighs 64 kg, blood pressure is 129/83, pulse of 85, respirations 16, temperature of 99.2 tympanic, O2 sat is 96% on room air. GENERAL: He is awake, alert, and oriented x4. PATIENT'S NAME: JIMMIE TORO [facility] AGE: 61 Y [address] ROOM: [place], [place] [address] LOCATION: ED ADMIT DATE: 06/22/2017 ER/Outpatient Report DISCHARGE DATE: 06/22/2017 FAMILY PHYSICIAN: Physician, Unknown ATTENDING PHYSICIAN: Lane Molina SKIN: [place], warm, and dry. RESPIRATIONS: Even and nonlabored. Lung sounds are clear throughout. HEART: Regular rate and rhythm. Has central port in right upper chest area. ABDOMEN: Soft and nondistended. Bowel sounds are present. EMERGENCY DEPARTMENT COURSE AND DIAGNOSTIC DATA: Central port was accessed by the nurse. Lab work was drawn. He was given Zofran 4 mg sublingual and fluids of normal saline were started at a wide-open rate. His CBC shows a white count of 1.9, hemoglobin is 9.8 with hematocrit of 27.6. His ANC is 1.4. Platelet count was 76. Chem panel: Sodium is 130, potassium is 4.2, and chloride of 93. His glucose was 138, BUN is 25 with a creatinine of 0.7. Lactate was normal at 0.8. Procalcitonin was normal. Dr. Molina reviewed the patient and lab results. Dr. Molina ordered cefepime 1 g IV, which was started on the patient. The patient was able to give us a clean-catch UA also. Negative leukocytes, negative nitrites, white count was 0-2 with bacteria being negative. Chest x-ray was completed. No acute abnormality is seen. Dr. Pacheco was contacted by Dr. Molina. Feels the patient can be discharged and follow up with him tomorrow. IMPRESSION: Neutropenia, gastritis. PLAN: Home, rest, fluids. Prescription was written for azithromycin as recommended by Dr. Pacheco. He is to follow up with Dr. Pacheco tomorrow and return to the ER as needed. He verbalized understanding. THERESA FREEMAN APRN FOR MD GUERA STAFFORD/grzegorz /[id number] d: 06/23/17 0221 t: 06/27/17 0633, OUTPATIENT REPORT
[~2017-06-22 15:36] MED LIST changes: -COLACE100 MG PO; -DULCOLAX10 MG R; -FLORASTOR250 MG PO; -IMODIUM2 MG PO; -LEVAQUIN ORA25 MG/ML FT; -REGLAN10 MG PO; -SENOKOT SYRUP240 ML FT; -TYLENOL ARTHRI650 MG PO; -ZOFRAN ODT4 MG PO
[2017-06-22 16:18] LABS: HEMATOCRIT 27.6 % (37.0-53.0); HEMOGLOBIN 9.8 g/dL (11.0-16.0); MCH 31.9 pg (27.0-34.0); MCHC 35.5 gm/dL (32.0-36.5); MCV 89.9 fl (83.0-98.0); MPV 10.2 fl (9.4-12.4); PLATELET COUNT 76 K/uL (150-450); RBC 3.07 M/uL (3.50-5.50); RDW-CV 13.2 % (11.9-14.6)
[2017-06-22 16:19] LABS: WBC 1.9 K/uL (4.0-11.0)
[2017-06-22 16:38] LABS: ALBUMIN 3.2 gm/dL (3.5-5.0); ALK PHOS 68 IU/L (33-138); ALT 20 IU/L (12-78); ANION GAP 11.2 (10.0-19.0); AST 13 IU/L (10-40); BLOOD UREA NITROGEN 25 mg/dL (6-24); CHLORIDE 93 mMol/L (96-110); CO2 30 mMol/L (22-32); CREATININE 0.7 mg/dL (0.6-1.3); POTASSIUM 4.2 mMol/L (3.7-5.1); SODIUM 130 mMol/L (135-145); TOTAL BILIRUBIN 0.5 mg/dL (0.0-1.5); TOTAL PROTEIN 7.7 g/dL (6.0-8.4)
[2017-06-22 16:49] LABS: ABSOLUTE NEUTROPHIL CT (ANC) 1.4 K/uL (1.4-9.0); BANDED NEUTROPHIL # 0.3 K/uL (0.0-0.1); BANDED NEUTROPHILS % 15 %; LYMPHOCYTE # 0.3 K/uL (0.8-4.0); LYMPHOCYTE % 14 %; MONOCYTE # 0.2 K/uL (0.0-1.0); SEGMENTED NEUTROPHIL # 1.2 K/uL (1.4-9.0); SEGMENTED NEUTROPHIL % 61 %
[2017-06-22 17:09] LABS: BILIRUBIN URINE NEGATIVE (NEGATIVE); BLOOD URINE NEGATIVE /UL (NEGATIVE); GLUCOSE URINE NEGATIVE (NEGATIVE); KETONE URINE 5 mg/dL (NEGATIVE); LEUKOCYTES URINE NEGATIVE /UL (NEGATIVE); NITRITE URINE NEGATIVE (NEGATIVE); PROTEIN URINE 15 mg/dL (NEGATIVE); UROBILINOGEN URINE 1 mg/dL (NORMAL)
[2017-06-22 17:39] LABS: COLOR URINE YELLOW (YELLOW); TURBIDITY URINE CLEAR (CLEAR)
[2017-06-22 17:40] LABS: RBC URINE NEGATIVE #/HPF (NEGATIVE); WBC URINE 0-2 #/HPF (NEGATIVE)
[2017-06-22 17:41] LABS: AMORPHOUS URINE 1+ (NEGATIVE); BACTERIA URINE NEGATIVE (NEGATIVE); EPITHELIAL URINE RARE #/HPF (NEGATIVE)
== END 2017-06-22 18:04 | disposition disaster alternative care site (69) ==
LOC: GMED 15:36
PROVIDERS: Emergency Medicine; Nurse Practitioner Family
DX: K29.70 Gastritis, unspecified, without bleeding (principal); D70.9 Neutropenia, unspecified; C32.9 Malignant neoplasm of larynx, unspecified; Z90.89 Acquired absence of other organs; Z93.1 Gastrostomy status; Z87.891 Personal history of nicotine dependence
CPT/HCPCS: J0692; J7030; J7040

== ENCOUNTER 2017-06-28 16:00 | Inpatient (IN) | payer MEDICAID ==
[~2017-06-28] VITALS: Ht 152.4 cm; Wt 63.2 kg
--- NOTE | ~2017-06-28 | HP ---
PATIENT'S NAME: JIMMIE TORO AGE: 61 Y [address] ROOM: [place] [id number] [place] [facility] [place]: 06/28/2017 History & Physical DISCHARGE DATE: FAMILY PHYSICIAN: PHYSICIAN, NO ATTENDING PHYSICIAN: OTTO SEBASTIAN DATE OF SERVICE: CHIEF COMPLAINT: Neutropenic fever, productive cough. HISTORY OF PRESENT ILLNESS: This is a 61-year-old male with a past medical history of active head and neck cancer, currently undergoing chemotherapy, who presents from his oncologist's office, Dr. Pacheco, for evaluation of persistent fever and increasing cough with some shortness of breath over the past week or so. The patient reports that he started experiencing worsening cough and sputum production over the past week or so and was started on Z-Hang, which did not fully resolve his symptoms. The patient presents here today because of persistent fevers with temperature max of 101.5. The patient also has history of respiratory failure due to his cancer, and he is status post tracheostomy. The patient also complains of subjective fever and chills but denies any chest pain, denies any diaphoresis, any dizziness, lightheadedness associated with this. Denies any nausea, vomiting, diarrhea, or constipation. Denies any dysuria, frequency urination type symptoms as well. PAST MEDICAL HISTORY: Head and neck cancer with local extension, status post tracheostomy, currently on chemotherapy. FAMILY HISTORY: Mother has history of lung cancer and father from aortic aneurysm complications. SOCIAL HISTORY: The patient has a significant history of smoking but quit in 2016. Denies use of alcohol or illicit drugs. 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 MEDICATIONS: Per MAR. REVIEW OF SYSTEMS: All systems have been reviewed and were all negative except as described in the HPI. PATIENT'S NAME: JIMMIE TORO AGE: 61 Y [address] ROOM: [place] [id number] [place] [facility] [place]: 06/28/2017 History & Physical DISCHARGE DATE: FAMILY PHYSICIAN: PHYSICIAN, NO ATTENDING PHYSICIAN: OTTO SEBASTIAN PHYSICAL EXAMINATION: VITAL SIGNS: Temperature 101.3, blood pressure 111/75, pulse 80, respiratory rate 18, saturating 95% on room air. GENERAL: The patient is awake, alert, and oriented x3, in no acute distress. HEENT: Moist mucous membranes. No scleral icterus, conjunctival pallor noted. SKIN: Generalized mild jaundice noted without rashes or lesions appreciated. CHEST: Diffusely coarse breath sounds, and no wheezing, crackles noted. HEART: S1, S2, regular rate and rhythm. ABDOMEN: Soft, nontender, nondistended. Positive bowel sounds. EXTREMITIES: Without edema. NEURO: Nonfocal, moves all extremities. MUSCULOSKELETAL: No joint effusion, tenderness, or erythema noted. ASSESSMENT AND PLAN: 1. Neutropenic fever. The patient's ANC earlier today is 1. There is also a report of increasing productive cough and pneumonia could be source of an infection. Keeping this in mind, I will write treatment with broad- spectrum antibiotics after blood cultures are drawn with vancomycin and cefepime and await culture results to come back. Also, get a two-view chest x-ray to assess that as well. 2. Pneumonia, bacterial. Clinically has symptoms consistent with possible pneumonia. We will await imaging studies, but in the mean time, we will treat with broad-spectrum antibiotics as above and also get a sputum culture. 3. Status post tracheostomy. 4. Head and neck cancer, on active chemo. Oncology team will follow along during hospitalization. 5. Deep venous thrombosis prophylaxis. We will use subcu Lovenox 40 mg daily. Platelet today was 96. MD DELMI RODRIGUEZ/grzegorz /[id number] D: [id number] T: [id number] HISTORY & PHYSICAL
--- NOTE | ~2017-06-28 | DS ---
PATIENT'S NAME: JIMMIE TORO [facility] AGE: 61 Y [address] ROOM: [place] [address] LOCATION: [facility] [place] ADMIT DATE: 06/28/2017 Discharge Summary DISCHARGE DATE: 07/04/2017 FAMILY PHYSICIAN: PHYSICIAN, NO ATTENDING PHYSICIAN: Florencia Hooks PRIMARY DIAGNOSES: 1. Neutropenia with fever. 2. Acute tracheobronchitis with Pseudomonas. 3. Community-acquired pneumonia. 4. Chronic hypoxic respiratory failure, status post tracheostomy. 5. Squamous cell carcinoma of the supraglottic larynx, stage IV, on radiation. 6. Pancytopenia. 7. Chronic constipation. 8. Generalized anxiety. 9. Hypomagnesemia. OPERATIONS AND PROCEDURES: None. HISTORY OF PRESENTING ILLNESS AND REASON FOR ADMISSION: Please refer to the H and P dictated on 06/28/2017. HOSPITAL COURSE: The patient was admitted to the hospital as noted above with a presumptive diagnosis of neutropenia with fever. Cultures revealed the presence of Pseudomonas. He was felt to be experiencing pseudomonal tracheobronchitis. He was treated with broad-spectrum antibiotic therapy. He was eventually transitioned to IV Levaquin. He tolerated that well. His clinical condition gradually improved. He was maintained on his home medication regimen. He received enteral nutrition via the PEG tube. He tolerated that well. By the end of the 6th day of his hospital stay, he was able to be transitioned to an enteral antibiotic regimen and felt to be well enough for discharge to home with plans for close clinical followup. DISCHARGE INSTRUCTIONS: DIET: N.p.o. except medications. He will receive enteral nutrition via the PEG tube per his usual schedule. ACTIVITY: As tolerated. MEDICATIONS: 1. Colace 100 mg per PEG b.i.d. 2. Dulcolax 10 mg MA daily p.r.n. constipation. PATIENT'S NAME: JIMMIE TORO [facility] AGE: 61 Y [address] ROOM: [place] [address] LOCATION: [facility] [place] ADMIT DATE: 06/28/2017 Discharge Summary DISCHARGE DATE: 07/04/2017 FAMILY PHYSICIAN: PHYSICIAN, NO ATTENDING PHYSICIAN: Florencia Hooks 3. Reglan 10 mg per PEG q.i.d. 4. Morphine 30 mg per PEG b.i.d. 5. Protonix 40 mg per PEG daily. 6. Florastor 250 mg per PEG b.i.d. 7. Senna 5 mL per PEG at h.s. 8. Carafate 1 g q.a.c. and h.s. 9. Acetaminophen 650 mg per PEG q.4 hours p.r.n. pain. 10. Alprazolam 0.5 mg per PEG t.i.d. p.r.n. 11. Dilaudid 4 mg per PEG q.3 hours p.r.n. pain. 12. Zofran 4 mg per PEG q.3 hours p.r.n. nausea. 13. Magic mouthwash 5 to 10 mL p.o. q.i.d. p.r.n. 14. Dulcolax 5 mg per PEG daily p.r.n. constipation. 15. Compazine 10 mg per PEG q.6 hours p.r.n. nausea. 16. Imodium 2 mg per PEG p.r.n. diarrhea. 17. Levofloxacin 750 mg per PEG daily x7 more days (total 14 days). FOLLOW UP: He will follow up with Dr. Pacheco in 5 to 7 days, and he will followup with his primary care provider in 7 to 10 days. CONDITION ON DISCHARGE: Fair. Total time spent on discharge process 45 minutes. MD GANESH PHILIP/grzegorz /[id number] d: 07/05/17 0250 t: 07/05/17 1729, DISCHARGE SUMMARY
[2017-06-28 20:56] LABS: ALBUMIN 2.5 gm/dL (3.5-5.0); ALK PHOS 54 IU/L (33-138); ALT 32 IU/L (12-78); ANION GAP 7.9 (10.0-19.0); AST 22 IU/L (10-40); BLOOD UREA NITROGEN 12 mg/dL (6-24); CALCIUM 8.1 mg/dL (8.5-10.5); CHLORIDE 100 mMol/L (96-110); CO2 30 mMol/L (22-32); CREATININE 0.5 mg/dL (0.6-1.3); POTASSIUM 3.9 mMol/L (3.7-5.1); SODIUM 134 mMol/L (135-145); TOTAL BILIRUBIN 0.4 mg/dL (0.0-1.5); TOTAL PROTEIN 6.2 g/dL (6.0-8.4)
[2017-06-28 21:00] LABS: BILIRUBIN URINE NEGATIVE (NEGATIVE); BLOOD URINE 10 /UL (NEGATIVE); COLOR URINE YELLOW (YELLOW); GLUCOSE URINE NEGATIVE (NEGATIVE); KETONE URINE NEGATIVE (NEGATIVE); LEUKOCYTES URINE NEGATIVE /UL (NEGATIVE); NITRITE URINE NEGATIVE (NEGATIVE); PROTEIN URINE NEGATIVE (NEGATIVE); TURBIDITY URINE CLEAR (CLEAR); UROBILINOGEN URINE NORMAL (NORMAL)
[2017-06-28 21:09] LABS: BACTERIA URINE NEGATIVE (NEGATIVE); EPITHELIAL URINE 0-2 #/HPF (NEGATIVE); WBC URINE RARE #/HPF (NEGATIVE)
--- NOTE | 2017-06-29 04:01 | NUR ---
Significant Event: Patient alert and oriented x4. Had one episode of forgetfulness, but reoriented easily. UA done and sputum culture done. Trach in place, pt does own cares. Asked for T-pad for trach and is in bathroom. VOids per urinal. Complains of head/neck pain. PO diludid given x2 last at 0100. Relief noted. Chest x-ray in AM. Blood cultures done. Home med list done. Peg tube in place, dietary to see today for feedings. POrt to R) chest with NS at 120ml. Recieved 500ml bolus. Started on cefepime and vanco. Fever 100.7-102.3, received order for tylenol over 100.4. Started on lovenox. Orthostatic BP and HR every 12 hours. Lungs coarse. Stand by assist in room. Bed alarm on. Follow up:
[2017-06-29 06:01] LABS: ALBUMIN 2.5 gm/dL (3.5-5.0); ANION GAP 9.9 (10.0-19.0); BLOOD UREA NITROGEN 13 mg/dL (6-24); CALCIUM 8.5 mg/dL (8.5-10.5); CHLORIDE 102 mMol/L (96-110); CO2 29 mMol/L (22-32); CREATININE 0.7 mg/dL (0.6-1.3); PHOSPHORUS 4.1 mg/dL (2.5-4.9); POTASSIUM 3.9 mMol/L (3.7-5.1); SODIUM 137 mMol/L (135-145)
[2017-06-29 06:08] LABS: HEMATOCRIT 21.3 % (37.0-53.0); MCH 31.6 pg (27.0-34.0); MCHC 34.7 gm/dL (32.0-36.5); MPV 9.4 fl (9.4-12.4); PLATELET COUNT 102 K/uL (150-450); RBC 2.34 M/uL (3.50-5.50); RDW-CV 13.2 % (11.9-14.6)
[2017-06-29 06:11] LABS: HEMOGLOBIN 7.4 g/dL (11.0-16.0); WBC 0.8 K/uL (4.0-11.0)
[2017-06-29 06:54] LABS: ABSOLUTE NEUTROPHIL CT (ANC) 0.6 K/uL (1.4-9.0); BANDED NEUTROPHIL # 0.1 K/uL (0.0-0.1); BANDED NEUTROPHILS % 14 %; LYMPHOCYTE # 0.1 K/uL (0.8-4.0); LYMPHOCYTE % 11 %; MONOCYTE # 0.1 K/uL (0.0-1.0); SEGMENTED NEUTROPHIL # 0.5 K/uL (1.4-9.0); SEGMENTED NEUTROPHIL % 64 %
--- NOTE | 2017-06-29 11:10 | NUR ---
Spoke to Shayna with [facility] regarding self pay and Medicaid status. She stated [place] Medicaid has canceled coverage and they need to follow up with patients sister to see if they have followed thru on [place] paperwork request. 1430 Introduced self/role to patient. Plan is to return to sisters home when discharge. Denied any barriers to going home or at home. Has the Medicaid paperwork in his car in the parking lot. Sister will bring in tomorrow to [facility]. Offered [facility] as a resource due to high Rx cost. He said not at this time, may have a spend down for Medicaid and will need to have Medical related costs. Added my name to his marker board, will follow. 1445 Updated Shayna with [facility].
[2017-06-29] MEDS ORDERED: DULCOLAX5 MG PO (14:59)
[2017-06-29] MEDS ORDERED: ZOFRAN ODT4 MG PO (14:59)
[2017-06-29] MEDS ORDERED: DULCOLAX10 MG R (15:00)
[2017-06-29] MEDS ORDERED: COMPAZINE10 MG PO (15:00)
[2017-06-29] MEDS ORDERED: COLACE100 MG PO (15:00)
[2017-06-29] MEDS ORDERED: IMODIUM2 MG PO (15:01)
[2017-06-29] MEDS ORDERED: TYLENOL ARTHRI650 MG PO (15:01)
[2017-06-29] MEDS ORDERED: REGLAN10 MG PO (15:02)
--- NOTE | 2017-06-29 15:44 | NUR ---
A-CONSULT RECEIVED FOR TF RECOMMENDATIONS PT IS WELL KNOW FROM PREVIOUS ADMITS. VISITED W/PT RE: TF AT HOME. HE IS DOING 6 CANS OF JEVITY 1.5 DAILY AT HOME. D/T ISSUES WITH REFLUX, HE BOLUS FEEDS VIA PUMP; 185 ML/HR X 4 HOURS THEN OFF AND THEN LATER IN THE DAY STARTS 185 ML/HR X 4 HOURS. THIS IS 1480 ML JEVITY 1.5; PROVIDES 2220 KCALS, 94 GM PROTEIN, AND 1125 ML FREE WATER. PT REPORTS THAT HE ALSO DOES 250 ML WATER FLUSHES X 4. HT: 68 IN. WT: 65 KG. BMI: 21.7. WT HAS BEEN FLUCTUATING BETWEEN 65-67 KG OVER THE LAST SEVERAL MONTHS. UNDERGOING CHEMO TX. LABS: NA 137, K+ 3.9, GLU 158, BUN 13, REHABILITATION CLERK 0.7, ALB 2.5 MEDS: ZOVIRAX, PROTONIX, MAXIPIME, VANCOMYCIN, XANAX, CARAFATE, MS CONTIN, DILAUDID, PARAPLATIN, ROCEPHIN, DECADRON, LEVAQUIN DIET RX: NPO; BOLUS FEEDINGS VIA PUMP ABOVE EST NUTR NEEDS: 0284-1963 KCALS (30-35 KCALS/KG) 78-98 GM PROTEIN (1.2-1.5 GM/KG) 1 ML FLUID/KCAL D-AT NUTRITION RISK W/INADEQUATE ORAL INTAKE R/T DIFF. SWALLOWING AEB PEG, RELIANCE ON ENTERAL FEEDINGS. I-RECOMMEND CONTINUING PT'S HOME TF ROUTINE (6 CANS OF JEVITY OR 1480 ML) BOLUS VIA PUMP. M/E-GOAL: TF TO MEET NUTR. NEEDS 1)F/U TF AND POC IN 3-5 DAYS 2)ASSIST NEEDED
--- NOTE | 2017-06-29 18:16 | NUR ---
Significant event: patient is alert and oriented. VSS on room air. Has trach and PEG. Jevity feedings written for 6 cans daily. Is able to take small meds whole and take liquids in orally. Need to crush larger meds and put through PEG tube. Did have a bout of nausea this morning, and Recieved order for zofran. This was given with relief. Has port to right chest with fluids running at 120mls/hr and intermittent antibiotics. Does want pain medication during the night to stay on top of pain, pt is agreeable to being woke up for this. Is in neutropenic precautions. no fevers today. Cooperative with cares.
--- NOTE | 2017-06-30 04:01 | NUR ---
AAO X3. VSS AFEBRILE THROUGHOUT SHIFT HIGHEST FEVER 99.1. SBA. URINAL AT BEDSIDE. CHEST PORT TO RIGHT CHEST GOOD BLOOD RETURN FLUIDS RUNNING AT 120ML/HR INTERMITTENT ANTIBIOTICS. PEG TUBE TO ABDOMEN FEEDINGS X4 PER DAY. TRACH IN PLACE WITH REPORTED SORE THROAT AND HOARSENESS. PATIENT DOES OWN TRACH CARES. DILAUDID GIVEN X3 AND PLAN TO GIVE AGAIN BEFORE SHIFT CHANGE, PATIENT WOULD LIKE THIS ON A SCHEDULED TIME FRAME. INCENTIVE SPIROMETER ORDERED EVERY HOUR WHILE AWAKE.
[2017-06-30 04:28] LABS: HEMATOCRIT 21.2 % (37.0-53.0); MCH 32.5 pg (27.0-34.0); MCHC 34.9 gm/dL (32.0-36.5); MPV 9.1 fl (9.4-12.4); RBC 2.28 M/uL (3.50-5.50); RDW-CV 13.2 % (11.9-14.6)
[2017-06-30 04:35] LABS: HEMOGLOBIN 7.4 g/dL (11.0-16.0); WBC 0.6 K/uL (4.0-11.0)
[2017-06-30 04:48] LABS: ALBUMIN 2.4 gm/dL (3.5-5.0); ANION GAP 9.8 (10.0-19.0); BLOOD UREA NITROGEN 13 mg/dL (6-24); CALCIUM 8.4 mg/dL (8.5-10.5); CHLORIDE 104 mMol/L (96-110); CO2 28 mMol/L (22-32); CREATININE 0.7 mg/dL (0.6-1.3); MAGNESIUM 1.7 mg/dL (1.8-2.6); PHOSPHORUS 2.9 mg/dL (2.5-4.9); POTASSIUM 3.8 mMol/L (3.7-5.1); SODIUM 138 mMol/L (135-145)
--- NOTE | 2017-06-30 11:30 | NUR ---
Spoke with Shelly Paul, plans as of right now would mostly likely be to treat infection here then maybe home after holiday weekend. No identified discharge needs.
[2017-06-30 15:32] LABS: HEMATOCRIT 19.6 % (37.0-53.0); MCH 32.2 pg (27.0-34.0); MCHC 34.7 gm/dL (32.0-36.5); MCV 92.9 fl (83.0-98.0); MPV 8.9 fl (9.4-12.4); PLATELET COUNT 95 K/uL (150-450); RBC 2.11 M/uL (3.50-5.50); RDW-CV 13.2 % (11.9-14.6)
[2017-06-30 15:42] LABS: HEMOGLOBIN 6.8 g/dL (11.0-16.0)
[2017-06-30 15:43] LABS: WBC 0.6 K/uL (4.0-11.0)
[2017-06-30 16:08] LABS: ABSOLUTE NEUTROPHIL CT (ANC) 0.3 K/uL (1.4-9.0); BANDED NEUTROPHIL # 0.1 K/uL (0.0-0.1); BANDED NEUTROPHILS % 14 %; LYMPHOCYTE # 0.1 K/uL (0.8-4.0); LYMPHOCYTE % 21 %; MONOCYTE # 0.1 K/uL (0.0-1.0); SEGMENTED NEUTROPHIL # 0.2 K/uL (1.4-9.0)
[2017-06-30 16:10] LABS: SEGMENTED NEUTROPHIL % 38 %
--- NOTE | 2017-06-30 20:07 | NUR ---
Significant event: patient is alert and oriented. VSS. on room Air. Has trach and PEG. Tube feedings, 360ml QID with 150 ml flushes. Port to right chest with fluids running and intermittent antibiotics. Patient able to take some medications whole, then crushes the rest and puts in tube. Did ambulate in just[place] today with student nurse. Is going to start back up on radiation, did go over late this afternoon for a treatment. IS on tele for mag IV infusion. Uses urinal at bedside. Cooperative with cares.
--- NOTE | 2017-06-30 23:55 | NUR ---
PT HOME MEDS WERE TAKEN HOME BY FAMILY ON 06/29
--- NOTE | 2017-07-01 04:51 | NUR ---
AAO X3. VSS AFEBRILE THROUGHTOUT SHIFT. SBA. NEUTROPENIC PRECAUTIONS. PEG TUBE TO ABDOMEN WITH 360ML FEED AND 150 WATER FLUSH. CAN ALSO HAVE LIQUIDS. TRACH IN PLACE WHICH PATIENT PROVIDES CARES FOR. RIGHT CHEST PORT WITH GOOD BLOOD RETURN. INTERMITTENT ANTIBIOTICS. RECEIVED 2 UNITS PRBC FOR HGB OF 6.8 AND LASIX BETWEEN UNITS. TYLENOL GIVEN X2 PRIOR TO EACH UNIT OF BLOOD LAST AT 2356. PATIENT REQUESTS DILAUDID ON A SCHEDULE Q3H ORDERED FOR THROAT PAIN. RADIATION TREATMENT 06/30/17 ON BACK OF NECK. I/S QH WHILE AWAKE.
[2017-07-01 05:51] LABS: HEMOGLOBIN 10.4 g/dL (11.0-16.0); MCV 90.2 fl (83.0-98.0); MPV 9.5 fl (9.4-12.4)
[2017-07-01 05:52] LABS: ALBUMIN 2.8 gm/dL (3.5-5.0); ANION GAP 7.7 (10.0-19.0); BLOOD UREA NITROGEN 11 mg/dL (6-24); CALCIUM 8.9 mg/dL (8.5-10.5); CHLORIDE 100 mMol/L (96-110); CO2 34 mMol/L (22-32); CREATININE 0.6 mg/dL (0.6-1.3); MAGNESIUM 1.9 mg/dL (1.8-2.6); PHOSPHORUS 3.1 mg/dL (2.5-4.9); POTASSIUM 3.7 mMol/L (3.7-5.1); SODIUM 138 mMol/L (135-145)
[2017-07-01 05:54] LABS: HEMATOCRIT 29.4 % (37.0-53.0); MCH 31.9 pg (27.0-34.0); MCHC 35.4 gm/dL (32.0-36.5); PLATELET COUNT 120 K/uL (150-450); RBC 3.26 M/uL (3.50-5.50); WBC 0.8 K/uL (4.0-11.0)
[2017-07-01 10:09] LABS: ABSOLUTE NEUTROPHIL CT (ANC) 0.4 K/uL (1.4-9.0); BANDED NEUTROPHIL # 0.2 K/uL (0.0-0.1); BANDED NEUTROPHILS % 20 %; LYMPHOCYTE # 0.2 K/uL (0.8-4.0); LYMPHOCYTE % 28 %; MONOCYTE # 0.1 K/uL (0.0-1.0); SEGMENTED NEUTROPHIL # 0.3 K/uL (1.4-9.0); SEGMENTED NEUTROPHIL % 34 %
--- NOTE | 2017-07-01 13:23 | NUR ---
Significant Event: Patient up ad brian in room. States good pain control with dilaudid--will be given about 1330. Patient states he feels better since the blood transfusion. Patient has had 1 tube feeding so far today and will get 2nd feeding at 1400 and plan for 3rd tube feeding at about 1830. Right chest infusaport flushes and has good blood return. Follow up: Continue to monitor.
[2017-07-02 05:13] LABS: ALBUMIN 2.6 gm/dL (3.5-5.0); ANION GAP 7.8 (10.0-19.0); BLOOD UREA NITROGEN 12 mg/dL (6-24); CALCIUM 8.8 mg/dL (8.5-10.5); CHLORIDE 98 mMol/L (96-110); CO2 34 mMol/L (22-32); CREATININE 0.5 mg/dL (0.6-1.3); MAGNESIUM 1.7 mg/dL (1.8-2.6); PHOSPHORUS 3.3 mg/dL (2.5-4.9); POTASSIUM 3.8 mMol/L (3.7-5.1); SODIUM 136 mMol/L (135-145)
[2017-07-02 05:33] LABS: HEMATOCRIT 27.9 % (37.0-53.0); HEMOGLOBIN 9.6 g/dL (11.0-16.0); MCH 31.1 pg (27.0-34.0); MCHC 34.4 gm/dL (32.0-36.5); MCV 90.3 fl (83.0-98.0); MPV 9.5 fl (9.4-12.4); PLATELET COUNT 114 K/uL (150-450); RBC 3.09 M/uL (3.50-5.50); RDW-CV 14.7 % (11.9-14.6)
[2017-07-02 05:39] LABS: WBC 0.6 K/uL (4.0-11.0)
[2017-07-02 07:35] LABS: ABSOLUTE NEUTROPHIL CT (ANC) 0.3 K/uL (1.4-9.0); LYMPHOCYTE # 0.2 K/uL (0.8-4.0); LYMPHOCYTE % 41 %; SEGMENTED NEUTROPHIL # 0.3 K/uL (1.4-9.0); SEGMENTED NEUTROPHIL % 43 %
--- NOTE | 2017-07-02 08:54 | NUR ---
Significant Event: A/O X3 AND COOPERATIVE WITH CARES. C/O PAIN RATING AT 7, GAVE DILAUDID X3 LAST AT 0430 WITH RELIEF NOTED. PATIENT HAS SUCTION EQUIPMENT AT BEDSIDE AND DOES OWN TRACH/SUCTION CARES. CURRENTLY ABLE TO SWALLOW PILLS, SOME MEDS DOWN PEG. TUBE FEEDING BOLUS 4X/DAY AND TOLERATING WELL. PORT TO R) CHEST FLUSHES BUT IS POSITIONAL FOR FLUSH AND BLOOD RETURN. CONTINUES ON IV ATB. UP AD KELLEE. SLEPT WELL THROUGH NIGHT. Follow up:
--- NOTE | 2017-07-02 13:52 | NUR ---
A-NUTRITION F/U NO BM SINCE ADMIT; MEDS BEING GIVEN. LABS: NA 136, K+ 3.8, GLU 97, BUN 12, DIRECTOR OF DISTANCE LEARNING 0.5, ALB 2.6. MEDS: FLORASTOR, MAG-OX, SENOKOT, GRANIX. DIET RX; 6 CANS (1440 ML) JEVITY 1.5 PER DAY. SPOKE W/PT AND HE REPORTS THAT TF IS GOING WELL AND HE IS TOLERATING WELL. HE IS HAVING A LITTLE BIT OF REFLUX AFTER LAST FEEDING, BUT HE IS OKAY. BOLUSING 360 ML JEVITY 1.5 4 TIMES PER DAY. D-AT NUTRITION RISK W/INADEQUATE ORAL INTAKE R/T DIFF SWALLOWING AEB PEG AND RELIANCE ON ENTERAL FEEDINGS. I-CONTINUE W/CURRENT TF RX M/E-GOAL:CONTINUED TOLERANCE OF TF 1)F/U TF, WT, AND POC IN 4-5 DAYS 2)ASSIST NEEDED
--- NOTE | 2017-07-02 15:49 | NUR ---
Significant Event: Patient up ad brian in room. Did have family come visit today. Last dilaudid given at 1508 with relief noted. Was able to have a BM today. Tolerating tube feeding well. Was started on granix sub-q to jump start WBC. We are to give daily until ANC is >500, and currently ANC is 300. Follow up: Continue to monitor.
--- NOTE | 2017-07-03 04:22 | NUR ---
SIGNIFICANT EVENT: Pt alert & oriented. VSS on RA. Can have liquids as tolerated. Tube feed of 240 with 150 flush per pt request-stated feeling full. Wants carafate 1 hr before feeding and Reglan 30 min before feeding. Dilaudid x1 so far this shift with noted relief - prefers it be given q3h to keep up with pain. Ad brian in room. Tracheostomy - pt does own cares. Port to R) chest - flushes well, good Blood return. Pleasant and cooperative with cares.
[2017-07-03 08:30] LABS: HEMOGLOBIN 10.6 g/dL (11.0-16.0); MCH 31.5 pg (27.0-34.0); MCHC 34.2 gm/dL (32.0-36.5); MPV 10.2 fl (9.4-12.4); PLATELET COUNT 89 K/uL (150-450); RBC 3.37 M/uL (3.50-5.50); RDW-CV 14.6 % (11.9-14.6)
[2017-07-03 08:34] LABS: ALBUMIN 2.9 gm/dL (3.5-5.0); ANION GAP 9.1 (10.0-19.0); BLOOD UREA NITROGEN 12 mg/dL (6-24); CALCIUM 9.2 mg/dL (8.5-10.5); CHLORIDE 98 mMol/L (96-110); CO2 33 mMol/L (22-32); CREATININE 0.6 mg/dL (0.6-1.3); MAGNESIUM 1.9 mg/dL (1.8-2.6); PHOSPHORUS 3.1 mg/dL (2.5-4.9); POTASSIUM 4.1 mMol/L (3.7-5.1); SODIUM 136 mMol/L (135-145)
[2017-07-03 09:35] LABS: ABSOLUTE NEUTROPHIL CT (ANC) 2.2 K/uL (1.4-9.0); BANDED NEUTROPHIL # 0.5 K/uL (0.0-0.1); BANDED NEUTROPHILS % 15 %; LYMPHOCYTE # 0.5 K/uL (0.8-4.0); LYMPHOCYTE % 15 %; MONOCYTE # 0.3 K/uL (0.0-1.0); SEGMENTED NEUTROPHIL # 1.8 K/uL (1.4-9.0); SEGMENTED NEUTROPHIL % 59 %
--- NOTE | 2017-07-03 17:56 | NUR ---
Significant event: Patient is alert and oriented. VSS. on room air. Trach in place, pt does own cares. PEG tube to abdomen with intermittent feedings, with 150mls flush. Also used for meds that pt can't swallow. Pt has port to right chest, saline locked with intermittent antibiotics. Cooperative with cares.
--- NOTE | 2017-07-04 04:45 | NUR ---
Pt. alert and oriented. VSS. RA. Trach - does own cares. PEG tube with feedings - x1 this shift with 150 flush. 2 meds given 30 mins prior to feeding. R) Chest port with intermittant IV antibx. Pain meds given x2 this shfit. Likes to stay consistent with PRN pain meds. UAL. Daily weight. Cooperative and pleasant with cares.
[2017-07-04 06:05] LABS: HEMATOCRIT 29.1 % (37.0-53.0); HEMOGLOBIN 9.6 g/dL (11.0-16.0); MCH 30.7 pg (27.0-34.0); MPV 9.8 fl (9.4-12.4); RBC 3.13 M/uL (3.50-5.50); RDW-CV 14.6 % (11.9-14.6); WBC 4.1 K/uL (4.0-11.0)
[2017-07-04 06:06] LABS: PLATELET COUNT 107 K/uL (150-450)
[2017-07-04 06:21] LABS: ALBUMIN 2.7 gm/dL (3.5-5.0); ANION GAP 8.3 (10.0-19.0); BLOOD UREA NITROGEN 15 mg/dL (6-24); CALCIUM 8.9 mg/dL (8.5-10.5); CHLORIDE 100 mMol/L (96-110); CO2 33 mMol/L (22-32); CREATININE 0.6 mg/dL (0.6-1.3); MAGNESIUM 1.9 mg/dL (1.8-2.6); PHOSPHORUS 3.3 mg/dL (2.5-4.9); POTASSIUM 4.3 mMol/L (3.7-5.1); SODIUM 137 mMol/L (135-145)
[2017-07-04 06:55] LABS: ABSOLUTE NEUTROPHIL CT (ANC) 3.5 K/uL (1.4-9.0); BANDED NEUTROPHIL # 0.9 K/uL (0.0-0.1); BANDED NEUTROPHILS % 23 %; LYMPHOCYTE # 0.2 K/uL (0.8-4.0); LYMPHOCYTE % 4 %; MONOCYTE # 0.5 K/uL (0.0-1.0); SEGMENTED NEUTROPHIL # 2.5 K/uL (1.4-9.0); SEGMENTED NEUTROPHIL % 62 %
[2017-07-04] MEDS ORDERED: SENOKOT SYRUP240 ML FT (13:53)
[2017-07-04] MEDS ORDERED: FLORASTOR250 MG PO (13:55)
[2017-07-04] MEDS ORDERED: LEVAQUIN ORA25 MG/ML FT (14:02)
--- NOTE | 2017-07-04 14:30 | NUR ---
D:Orders received for patient to be dismissed. Dismissal instructions were prepared and reviewed with the patient by the virtual nurse using the computer. The following information was reviewed with the patient: diet and activity recommendations for home, peg tube care for home, abnormal s/s to monitor for and to report to MD if occur, plans for chemotherapy [facility] the [facility] at 1:00 and the need for him to call them by 10 am to let them know how he is feeling, home medications/new prescription medications, and plans for follow up with Dr. Pacheco next Monday. Jose J teaching given to and reviewed with the patient on the following topics: 1 - Preventing Deep Vein Thrombosis 2 - Levaquin, 3 - Florastor and 4 - Senna. R:The patient verbalized understanding of the above teaching. P:The primary nurse was informed that the dismissal teaching had been completed and the tech took the paperwork/prescriptions in for the patient to have/sign. The patient was dismisssed to [facility]. Jourdan GARVIN
== END 2017-07-04 14:50 | disposition disaster alternative care site (69) | DRG 808 ==
LOC: GMSU 16:15
PROVIDERS: Internal Medicine Hematology & Oncology; Physician Assistant; ADMIT Internal Medicine
DX: D70.1 Agranulocytosis secondary to cancer chemotherapy (principal); J15.1 Pneumonia due to Pseudomonas; J96.11 Chronic respiratory failure with hypoxia; E44.0 Moderate protein-calorie malnutrition; Z93.0 Tracheostomy status; C32.1 Malignant neoplasm of supraglottis; R50.81 Fever presenting with conditions classified elsewhere; Z87.891 Personal history of nicotine dependence; E83.42 Hypomagnesemia; J20.9 Acute bronchitis, unspecified; T45.1X5A Adverse effect of antineoplastic and immunosuppressive drugs, initial encounter; F41.1 Generalized anxiety disorder; K59.09 Other constipation; Z92.3 Personal history of irradiation; Z92.21 Personal history of antineoplastic chemotherapy
CPT/HCPCS: J0692; J1447; J1650; J1940; J2405; J3370; J3475; J7030; J7040; J7050; P9040

== ENCOUNTER 2017-07-06 20:48 | Emergency (ER) | payer SELFPAY ==
--- NOTE | ~2017-07-06 | ER ---
PATIENT'S NAME: JIMMIE TORO [facility] AGE: 61 Y [address] ROOM: [place] [address] LOCATION: ED ADMIT DATE: 07/06/2017 ER/Outpatient Report DISCHARGE DATE: 07/06/2017 FAMILY PHYSICIAN: Physician, Unknown ATTENDING PHYSICIAN: Singh Springer Time of Arrival: 8 hours. Time of Evaluation: 2047 hours. CHIEF COMPLAINT: Throat tightening. HISTORY OF PRESENT ILLNESS: The patient states that he was discharged from the hospital on 07/04/2017 following a pneumonia. He got started on Levaquin and was told to watch for signs of allergic reaction. He states this afternoon about 2 o'clock he began having problems with his throat feeling tight. States it was getting more and more difficult to swallow. He has had some generalized abdominal pain. He has had some nausea but no vomiting. He has not noticed any hives. He has to had 2 or 3 doses of Levaquin. ALLERGIES: NO KNOWN DRUG ALLERGIES. CURRENT MEDICATIONS: On his chart and reviewed by me. PAST MEDICAL HISTORY: Squamous cell carcinoma of the supraglottic larynx, tracheostomy, PEG tube. PAST SURGICAL HISTORY: Tracheostomy, PEG tube insertion, back surgery x2, right knee surgery, appendectomy, hernia repair. SOCIAL HISTORY: He quit smoking in June. Denies use of tobacco now or drugs or alcohol. Reports Dr. Pacheco is his primary provider. REVIEW OF SYSTEMS: Negative other than those mentioned in the HPI. PHYSICAL EXAMINATION: VITAL SIGNS: He weighs 62.8 kg, blood pressure is 115/71, pulse of 88, respirations 18, temperature of 96.7 tympanic, O2 saturations 95% on room air. GENERAL: He is awake, alert, and oriented x4. PATIENT'S NAME: JIMMIE TORO [facility] AGE: 61 Y [address] ROOM: [place] [address] LOCATION: ED ADMIT DATE: 07/06/2017 ER/Outpatient Report DISCHARGE DATE: 07/06/2017 FAMILY PHYSICIAN: Physician, Unknown ATTENDING PHYSICIAN: Singh Springer SKIN: [place], warm, and dry. RESPIRATIONS: Even and nonlabored. Oropharynx is slightly red posteriorly. NECK: Supple. He does have tracheostomy in place. LUNGS: Lung sounds are coarse throughout. HEART: Regular rate and rhythm. SKIN: No welts are noted. He does have a reddish [place] complexion to him. EMERGENCY DEPARTMENT COURSE: Saline lock was initiated. He was given Solu-Medrol 125 mg IV. Monitored. His O2 saturations remained greater 95% while here in the ER. IMPRESSION: Sore throat, probable allergic reaction to Levaquin. PLAN: The patient is to stop the Levaquin. Prescription was written for doxycycline. He is to continue his other medications. He can take Benadryl as needed. He is to follow up with Dr. Pacheco as scheduled. He verbalized understanding. THERESA FREEMAN APRN FOR MD [facility] WELLS/grzegorz /[id number] d: 07/07/17 0130 t: 07/09/17 1115, OUTPATIENT REPORT
[~2017-07-06 20:48] MED LIST changes: +COLACE100 MG PO; +DULCOLAX10 MG R; +FLORASTOR250 MG PO; +IMODIUM2 MG PO; +LEVAQUIN ORA25 MG/ML FT; +REGLAN10 MG PO; +SENOKOT SYRUP240 ML FT; +TYLENOL ARTHRI650 MG PO; +ZOFRAN ODT4 MG PO
== END 2017-07-06 22:04 ==
LOC: GMED 20:48
DX: J02.9 Acute pharyngitis, unspecified (principal); C32.9 Malignant neoplasm of larynx, unspecified; Z87.891 Personal history of nicotine dependence; Z90.49 Acquired absence of other specified parts of digestive tract; Z79.899 Other long term (current) drug therapy; Z98.890 Other specified postprocedural states; Z93.0 Tracheostomy status
CPT/HCPCS: J2930